=== PATIENT | female | born 1935 | race Caucasian/White ===

== ENCOUNTER → 2017-04-02 | Outpatient (CLI) | payer MEDICARE ==
--- NOTE | 2017-04-02 09:49 | BD ---
EXAMINATION TYPE: MG DEXA axial skeleton. DATE OF EXAM: 04/02/2017 COMPARISON: 03/19/2013 DEXA bone scan CLINICAL HISTORY: Postmenopausal female Height: 63 IN Weight: 161 LBS FRAX RISK QUESTIONS: Alcohol (3 or more units per day): NO Family History (Parent hip fracture): NO Glucocorticoids (More than 3mos): NO (Ex: prednisone, prednisolone, methylprednisolone, dexamethasone, and hydrocortisone). History of Fracture in Adulthood: YES FRACTURE OF RT TIBIA Secondary Osteoporosis: 1. Type 1 Diabetes: NO 2. Hyperthyroidism: NO 3. Menopause before 45: YES AGE 40 4. Malnutrition: NO 5. Chronic liver disease: NO Rheumatoid Arthritis: NO Current Tobacco Use: NO RISK FACTORS HISTORY OF: Active: YES Diet low in dairy products/other sources of calcium: YES Postmenopausal woman: AGE 40 MEDICATIONS: Osteoporosis Medications: NOT NOW Which medication: Fosamax How Long: AGE 55 - 57 Additional Medications: VIT D, ATENOLOL, VALSARTAN, SIMVASTATIN, ASPIRIN, XANAX, AMOXICILLIN, NEXIUM, EXAM MEASUREMENTS: Bone mineral densitometry was performed using the [facility]. Bone mineral density as measured about the Lumbar spine is: ----- L1-L4(G/cm2): 1.177 T Score Values are as follows: ----- L2: -0.9 ----- L3: 0.2 ----- L4: 1.2 ----- L1-L4: 0.0 Bone mineral density has: Increased 5.0% since study of: 03/19/2013 Bone mineral density about the R hip (g/cm2): 0.878 Bone mineral density about the L hip (g/cm2): 0.810 T Score values are as follows: -----R Neck: -1.2 -----L Neck: -1.6 -----R Total: -1.4 -----L Total: -1.5 Bone mineral density has: Increased 0.6% since study of: 03/19/2013 IMPRESSION: Osteopenia (T Score between -2.5 and -1 as noted by T score values in bilateral hips femoral neck lev el remains present. Bone density fairly stable from prior. There is slightly increased risk of fracture and the patient may be considered for treatment. Re-Screen 2-5 years. NOTE: T-SCORE=SD OF THE YOUNG ADULT MEAN.
--- NOTE | 2017-04-03 11:40 | MM ---
Reason for exam: screening (asymptomatic). Last mammogram was performed 1 year ago. History: Patient is postmenopausal, history of other cancer, and is nulliparous. Family history of breast cancer in sister at age 50. Physical Findings: A clinical breast exam by your physician is recommended on an annual basis and results should be correlated with mammographic findings. MG 3D Screening Mammo W/Cad Bilateral CC and MLO view(s) were taken. Prior study comparison: April 01, 2016, bilateral MG 3d screening mammo w/cad. March 30, 2015, bilateral MG screening mammo w CAD. There are scattered fibroglandular densities. Finding: There are typically benign dystrophic, round calcifications in the right breast. There is a chronic nodularity in the right breast. Asymmetric breast tissue in the left breast, stable. ASSESSMENT: Benign, BI-RAD 2 RECOMMENDATION: Routine screening mammogram of both breasts in 1 year.
== END | disposition home or self-care (01) ==
LOC: RADMAMWWP 07:34
PROVIDERS: ATTEND Internal Medicine
DX: Z12.31 Encounter for screening mammogram for malignant neoplasm of breast (principal); M85.80 Other specified disorders of bone density and structure, unspecified site; Z78.0 Asymptomatic menopausal state
CPT/HCPCS: 77080; 77063; G0202

== ENCOUNTER 2017-08-27 09:35 | Emergency (ER) | payer MEDICARE ==
[2017-08-27 09:45] VITALS: RESP 18; TEMP 98.5
--- NOTE | 2017-08-27 10:16 | ED ---
General Adult HPI - General Chief complaint: Syncope Stated complaint: SYNCOPE Time Seen by Provider: 08/27/17 10:05 Source: patient, family, RN notes reviewed Mode of arrival: wheelchair Limitations: no limitations - History of Present Illness Initial comments: Patient is a pleasant 81-year-old female presenting to the emergency department following syncopal episode. Episode occurred this morning while in the kitchen making coffee. Patient did not injure herself. No head injury. Patient has had some diarrhea over the past several days and does have some concern for dehydration. Patient has had gas. No abdominal pain. Patient has had cough for the past week or more. No difficulty in breathing. - Related Data Home Medications Medication Instructions Recorded Confirmed ALPRAZolam [Xanax] 0.25 mg PO HS PRN 05/16/15 08/27/17 Aspirin EC [Ecotrin] 81 mg PO DAILY 05/16/15 08/27/17 Atenolol [Tenormin] 25 mg PO DAILY 05/16/15 08/27/17 Simvastatin [Zocor] 20 mg PO HS 05/16/15 08/27/17 Valsartan/Hydrochlorothiazide 1 tab PO DAILY 05/16/15 08/27/17 [Valsartan-Hctz 320-25 mg Tab] Cholecalciferol [Vitamin D3] 1,000 unit PO DAILY 08/27/17 08/27/17 Naproxen Sodium [Aleve] 220 mg PO BID PRN 08/27/17 08/27/17 Previous Rx's Medication Instructions Recorded Metoclopramide HCl [Reglan] 10 mg PO Q6HR PRN #15 tablet 08/27/17 Allergies Allergy/AdvReac Type Severity Reaction Status Date / Time codeine AdvReac Nausea & Verified 08/27/17 10:10 Vomiting Review of Systems ROS Statement: Those systems with pertinent positive or pertinent negative responses have been documented in the HPI. ROS Other: All systems not noted in ROS Statement are negative. Constitutional: Denies: fever Eyes: Denies: eye pain ENT: Denies: ear pain Respiratory: Reports: cough. Denies: dyspnea Cardiovascular: Denies: chest pain Endocrine: Denies: fatigue Gastrointestinal: Reports: nausea, diarrhea. 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 Absent: nystagmus ENT exam: Present: normal oropharynx Neck exam: Present: normal inspection Respiratory exam: Present: normal lung sounds bilaterally. Absent: chest wall tenderness Cardiovascular Exam: Present: regular rate, normal rhythm Expanded Peripheral pulses: 2+: Radial (R), Radial (L), Posterior Tibialis (R), Posterior Tibialis (L) GI/Abdominal exam: Present: soft. Absent: tenderness Extremities exam: Present: normal inspection. Absent: pedal edema, calf tenderness Back exam: Present: normal inspection Neurological exam: Present: alert, oriented X3, CN II-XII intact. Absent: motor sensory deficit Expanded Neurological exam: Present: protecting the airway Patient oriented to: Present: person, place, time Speech: Present: fluid speech Cranial nerves: EOM's Intact: Normal, Facial Sensation: Normal Sensory exam: Upper Extremity Light Touch: Normal, Lower Extremity Light Touch: Normal Motor strength exam: RUE: 5, LUE: 5, RLE: 5, LLE: 5 Eye Response: (4) open spontaneously Motor Response: (6) obeys commands Verbal Response: (5) oriented Psychiatric exam: Present: normal affect, normal mood Skin exam: Present: normal color Course Vital Signs 08/27/17 09:42 Temperature 98.5 F Pulse Rate 93 Respiratory 18 Rate Blood Pressure 131/66 O2 Sat by Pulse 96 Oximetry EKG Findings - EKG Comments: EKG Findings:: Normal sinus rhythm 65. MT 164. QRS 98. QT 392. QTC 407. Normal axis. T wave inversion inferior and leads V3 through V6. Q wave in lead 3. Medical Decision Making - Medical Decision Making Patient reevaluated and resting comfortably in bed. Patient is symptom-free at this time. Case discussed in detail with Dr. Mckenzie who does recommend further fluid bolus. He states the patient is feeling better at that point can be discharged. Patient updated. - Lab Data Result diagrams: 08/27/17 10:55 08/27/17 10:55 Lab Results 08/27/17 08/27/17 08/27/17 Range/Units 10:55 10:55 10:55 WBC 6.2 (3.8-10.6) k/uL RBC 4.61 (3.80-5.40) m/uL Hgb 13.5 (11.4-16.0) gm/dL Hct 39.8 (34.0-46.0) % MCV 86.3 (80.0-100.0) fL MCH 29.4 (25.0-35.0) pg MCHC 34.0 (31.0-37.0) g/dL RDW 12.3 (11.5-15.5) % Plt Count 180 (150-450) k/uL Neutrophils % 87 % Lymphocytes % 5 % Monocytes % 4 % Eosinophils % 2 % Basophils % 0 % Neutrophils # 5.4 (1.3-7.7) k/uL Lymphocytes # 0.3 L (1.0-4.8) k/uL Monocytes # 0.3 (0-1.0) k/uL Eosinophils # 0.1 (0-0.7) k/uL Basophils # 0.0 (0-0.2) k/uL PT (9.0-12.0) sec INR (<1.2) APTT (22.0-30.0) sec D-Dimer (<0.60) mg/L FEU Sodium 126 L (137-145) mmol/L Potassium 3.4 L (3.5-5.1) mmol/L Chloride 85 L (98-107) mmol/L Carbon Dioxide 30 (22-30) mmol/L Anion Gap 11 mmol/L BUN 12 (7-17) mg/dL Creatinine 0.65 (0.52-1.04) mg/dL Est GFR (MDRD) Af Amer >60 (>60 ml/min/1.73 sqM) Est GFR (MDRD) Non-Af >60 (>60 ml/min/1.73 sqM) Glucose 107 H (74-99) mg/dL Calcium 9.2 (8.4-10.2) mg/dL Magnesium 1.6 (1.6-2.3) mg/dL Total Bilirubin 0.2 (0.2-1.3) mg/dL AST 47 H (14-36) U/L ALT 40 (9-52) U/L Alkaline Phosphatase 45 (38-126) U/L Total Creatine Kinase 279 H (30-135) U/L CK-MB (CK-2) 0.8 (0.0-2.4) ng/mL CK-MB (CK-2) Rel Index 0.3 Troponin I <0.012 (0.000-0.034) ng/mL Total Protein 6.5 (6.3-8.2) g/dL Albumin 3.9 (3.5-5.0) g/dL 08/27/17 Range/Units 10:55 WBC (3.8-10.6) k/uL RBC (3.80-5.40) m/uL Hgb (11.4-16.0) gm/dL Hct (34.0-46.0) % MCV (80.0-100.0) fL MCH (25.0-35.0) pg MCHC (31.0-37.0) g/dL RDW (11.5-15.5) % Plt Count (150-450) k/uL Neutrophils % % Lymphocytes % % Monocytes % % Eosinophils % % Basophils % % Neutrophils # (1.3-7.7) k/uL Lymphocytes # (1.0-4.8) k/uL Monocytes # (0-1.0) k/uL Eosinophils # (0-0.7) k/uL Basophils # (0-0.2) k/uL PT 10.5 (9.0-12.0) sec INR 1.1 (<1.2) APTT 25.6 (22.0-30.0) sec D-Dimer 12.52 H (<0.60) mg/L FEU Sodium (137-145) mmol/L Potassium (3.5-5.1) mmol/L Chloride (98-107) mmol/L Carbon Dioxide (22-30) mmol/L Anion Gap mmol/L BUN (7-17) mg/dL Creatinine (0.52-1.04) mg/dL Est GFR (MDRD) Af Amer (>60 ml/min/1.73 sqM) Est GFR (MDRD) Non-Af (>60 ml/min/1.73 sqM) Glucose (74-99) mg/dL Calcium (8.4-10.2) mg/dL Magnesium (1.6-2.3) mg/dL Total Bilirubin (0.2-1.3) mg/dL AST (14-36) U/L ALT (9-52) U/L Alkaline Phosphatase (38-126) U/L Total Creatine Kinase (30-135) U/L CK-MB (CK-2) (0.0-2.4) ng/mL CK-MB (CK-2) Rel Index Troponin I (0.000-0.034) ng/mL Total Protein (6.3-8.2) g/dL Albumin (3.5-5.0) g/dL - Radiology Data Radiology results: report reviewed (Computed tomography scan of the chest negative for pulmonary embolism. Computed tomography scan of the brain reveals no acute process.), image reviewed (Chest x-ray shows no acute process.) Disposition Clinical Impression: Syncope, Hyponatremia Disposition: HOME SELF-CARE Condition: Stable Instructions: Hyponatremia (ED), Syncope (ED) Additional Instructions: Please follow-up with Dr. Mckenzie in the next couple of days for recheck. He will need to have your sodium level checked and your blood within the next few days. Return for passing out, vomiting, not tolerating oral intake, worsening symptoms or other concerns. Prescriptions: Metoclopramide HCl [Reglan] 10 mg PO Q6HR PRN #15 tablet PRN Reason: Nausea Referrals: Pineda Mckenzie MD [Primary Care Provider] - 1-2 days Time of Disposition: 14:11
[2017-08-27 11:04] LABS: Basophils % (A) 0 %; Eosinophils # (A) 0.1 k/uL (0-0.7); Eosinophils % (A) 2 %; HCT 39.8 % (34.0-46.0); HGB 13.5 gm/dL (11.4-16.0); Lymphocytes # (A) 0.3 k/uL (1.0-4.8); Lymphocytes % (A) 5 %; MCH 29.4 pg (25.0-35.0); MCV 86.3 fL (80.0-100.0); Mean Platelet Volume 7.1; Monocytes # (A) 0.3 k/uL (0-1.0); Monocytes % (A) 4 %; Neutrophils # (A) 5.4 k/uL (1.3-7.7); Neutrophils % (A) 87 %; Platelet Count 180 k/uL (150-450); RBC 4.61 m/uL (3.80-5.40); RDW 12.3 % (11.5-15.5); WBC 6.2 k/uL (3.8-10.6)
[2017-08-27 11:19] LABS: ALT 40 U/L (9-52); AST 47 U/L (14-36); Albumin 3.9 g/dL (3.5-5.0); Alkaline Phosphatase 45 U/L (38-126); Anion Gap 11 mmol/L; Blood Urea Nitrogen 12 mg/dL (7-17); Calcium 9.2 mg/dL (8.4-10.2); Carbon Dioxide 30 mmol/L (22-30); Chloride 85 mmol/L (98-107); Glucose 107 mg/dL (74-99); INR 1.1 (<1.2); Magnesium 1.6 mg/dL (1.6-2.3); Potassium 3.4 mmol/L (3.5-5.1); Sodium 126 mmol/L (137-145); Total Bilirubin 0.2 mg/dL (0.2-1.3); Total Protein 6.5 g/dL (6.3-8.2)
[2017-08-27 11:20] LABS: Creatine Kinase 279 U/L (30-135); D-Dimer 12.52 mg/L FEU (<0.60); Partial Thromboplastin Time 25.6 sec (22.0-30.0); Prothrombin Time 10.5 sec (9.0-12.0)
[2017-08-27 11:33] LABS: Creatine Kinase MB 0.8 ng/mL (0.0-2.4); Troponin I <0.012 ng/mL (0.000-0.034)
--- NOTE | 2017-08-27 11:59 | CT ---
EXAMINATION TYPE: CT brain wo con DATE OF EXAM: 08/27/2017 COMPARISON: NONE INDICATION: Patient complains of syncopeal episode today. DLP: 823.8 mGycm, Automated exposure control for dose reduction was used. CONTRAST: None CT of the brain is performed utilizing 3 mm thick sections through the posterior fossa and 3 mm thick sections through the remaining calvarium. Study is performed within 24 hours of arrival to the hosp ital. No abnormal hyperdensity is present to suggest an acute intracranial hemorrhage. No mass lesion is evident. No acute infarcts are evident. Ventricles and sulci are appropriate for the patient age. Paranasal sinuses and mastoid air cells within the [id number] are clear. There is hyperostosis frontalis internus, normal variant. IMPRESSIONS: 1. No acute intracranial process.
--- NOTE | 2017-08-27 12:09 | XR ---
EXAMINATION TYPE: XR chest 2V DATE OF EXAM: 08/27/2017 COMPARISON: 11/21/2010 INDICATION: Syncope cough short of breath TECHNIQUE: Frontal and lateral views of the chest are obtained. FINDINGS: The heart size is normal. The pulmonary vasculature is normal. The lungs are clear. IMPRESSION: 1. No acute pulmonary process.
[2017-08-27] MEDS ORDERED: SODIUM CHLORIDE 0.9% 1,000 ML IV STA ×2 (12:18→14:02)
[2017-08-27] MEDS ORDERED: RX INFO: IV CONTRAST WAS GIVEN 1 EACH MISC MISCELLANE PRN (12:18)
[2017-08-27] MEDS ORDERED: SODIUM CHLORIDE 0.9% 500 ML IV STA (12:18)
--- NOTE | 2017-08-27 13:40 | CT ---
CT CHEST FOR PULMONARY EMBOLISM. EXAMINATION TYPE: CT angio chest DATE OF EXAM: 08/27/2017 INDICATION: Patient complains of syncopal episode today. CT DLP: 158.2 mGycm, Automated exposure control for dose reduction was used. CONTRAST: Patient injected with 100 mL of Omnipaque 350. COMPARISON: NONE TECHNIQUE: CT of the chest is performed on a spiral scan at 2 mm thick sections. Study is performed with intravenous contrast timed for evaluation for pulmonary embolism. This will limit additional po rtions of the evaluation. 3-D MIP images reconstructed by the technologist are reviewed on the compu ter in the coronal and sagittal planes. FINDINGS: No persistent filling defects are evident to suggest an acute pulmonary embolism. No mediastinal or hilar adenopathy enlarged by CT criteria is evident. The ascending aorta diameter at the level of the main pulmonary artery is 2.9 cm. The main pulmonary artery diameter at the bifur cation is 2.5 cm. Lung windows are clear. There is a small hiatal hernia present. Limited CT sections are obtained through the upper abdomen. There is a 1.7 cm cyst measuring 17 Houns field units in the medial right lobe liver. IMPRESSIONS: 1. No acute pulmonary embolism.
[2017-08-27 15:14] VITALS: BP 144/85; PULSE 72
== END 2017-08-27 15:24 | disposition home or self-care (01) ==
LOC: EC 09:35
DX: E87.1 Hypo-osmolality and hyponatremia (principal); R19.7 Diarrhea, unspecified; R05 Cough; R55 Syncope and collapse; E78.5 Hyperlipidemia, unspecified; I10 Essential (primary) hypertension; Z87.891 Personal history of nicotine dependence; Z79.82 Long term (current) use of aspirin; Z79.899 Other long term (current) drug therapy; Z88.5 Allergy status to narcotic agent; Z53.8 Procedure and treatment not carried out for other reasons
CPT/HCPCS: 36415; 93005; 85379; 80053; 82550; 82553; 83735; 84484; 85025; 85610; 85730; 71046; 70450; 71275; 99285; 96360; Q9967

== ENCOUNTER → 2018-02-26 | Outpatient (CLI) | payer MEDICARE ==
[2018-02-26 08:03] LABS: HCT 44.9 % (34.0-46.0); HGB 14.3 gm/dL (11.4-16.0); MCH 28.6 pg (25.0-35.0); MCHC 31.8 g/dL (31.0-37.0); MCV 89.7 fL (80.0-100.0); Mean Platelet Volume 7.2; Platelet Count 310 k/uL (150-450); RDW 12.7 % (11.5-15.5); WBC 7.6 k/uL (3.8-10.6)
[2018-02-26 08:17] LABS: INR 1.1 (<1.2); Partial Thromboplastin Time 25.5 sec (22.0-30.0); Prothrombin Time 10.4 sec (9.0-12.0)
[2018-02-26 08:30] LABS: Albumin 4.5 g/dL (3.5-5.0); Calcium 10.6 mg/dL (8.4-10.2); Total Bilirubin 0.6 mg/dL (0.2-1.3); Total Protein 7.6 g/dL (6.3-8.2)
[2018-02-26 08:38] LABS: Appearance,Urine Cloudy (Clear); Bacteria,Urine Many /hpf; Bilirubin,Urine Negative (Negative); Blood,Urine Trace (Negative); Color,Urine Yellow; Glucose,Urine (UA) Negative (Negative); Hyaline Casts,Urine 7 /lpf (0-2); Ketones,Urine Negative (Negative); Leukocyte Esterase,Urine Large (Negative); Mucus,Urine Few /hpf; Nitrite,Urine Negative (Negative); PH, Urine 5.5 (5.0-8.0); Protein,Urine 1+ (Negative); RBC,Urine 3 /hpf (0-5); Specific Gravity,Urine 1.018 (1.001-1.035); Squamous Epithelial Cell,Urine 25 /hpf (0-4); Urobilinogen,Urine <2.0 mg/dL (<2.0); WBC,Urine 86 /hpf (0-5)
== END | disposition home or self-care (01) ==
LOC: LABPAT 06:59
PROVIDERS: ATTEND Orthopaedic Surgery
DX: Z01.812 Encounter for preprocedural laboratory examination (principal); M17.11 Unilateral primary osteoarthritis, right knee; Z79.01 Long term (current) use of anticoagulants
CPT/HCPCS: 36415; 80053; 81001; 85027; 85610; 85730; 87070

== ENCOUNTER 2018-03-25 12:51 | Inpatient (IN) | payer MEDICARE ==
[2018-03-19 09:23] VITALS: BMI 27.4
[~2018-03-25 12:51] MED LIST: ACETAMINOPHEN TAB 500 MG TAB PO ONE; LIDOCAINE 1% 20 ML VIAL (10MG/ML) FOR IV START INTRADERMA PRN; TRANEXAMIC ACID 1,000 MG in SODIUM CHLORIDE 0.9% 50 ML IVPB ONE; ceFAZolin IN SWFI 2 GM/20 ML SYRINGE IVP ONE
[2018-03-25] MEDS ORDERED: ROPIVACAINE 246.25 MG, EPINEPHrine 0.5 MG, KETOROLAC 30 MG, cloNIDine HCL/PF 80 MCG, WA... MISCELLANE ONE ×5 (12:53)
[2018-03-25] MEDS: ONDANSETRON 4 MG/2 ML VIAL IVP ONE ×2 (13:20→19:09)
[2018-03-25] MEDS: LACTATED RINGERS 1,000 ML IV SCH ×2 (13:22→21:25)
[2018-03-25] MEDS ORDERED: TRANEXAMIC ACID 1,000 MG/10 ML VIAL ONE (15:49)
[2018-03-25] MEDS ORDERED: diphenhydrAMINE 50 MG/ML 1 ML VIAL ONE (15:49)
[2018-03-25] MEDS ORDERED: MIDAZOLAM 2 MG/2 ML VIAL ONE (15:49)
[2018-03-25] MEDS ORDERED: SODIUM CHLORIDE 0.9% 100 ML BAG ONE (15:49)
[2018-03-25] MEDS ORDERED: fentaNYL (PF) 50 MCG/ML 2 ML AMP ONE (15:49)
[2018-03-25] MEDS ORDERED: PROPOFOL 10 MG/ML 20 ML VIAL IV ONE (15:49)
[2018-03-25] MEDS ORDERED: PHENYLEPHRINE-0.9% NACL SYG 1 MG/10 ML SYRINGE ONE (15:49)
[2018-03-25] MEDS ORDERED: ePHEDrine SULFATE/0.9% NACL/PF 50 MG/5 ML SYRINGE IV ONE (15:49)
[2018-03-25] MEDS ORDERED: LACTATED RINGERS 1,000 ML IV ONE ×2 (16:15→18:55)
--- NOTE | 2018-03-25 17:55 | P.OP ---
Date of Procedure: 03/25/18 Procedure(s) Performed: PREOPERATIVE DIAGNOSIS: Right knee severe osteoarthritis with genu varum POSTOPERATIVE DIAGNOSIS: Right knee severe osteoarthritis with genu varum; 2. Diminished bone quality/osteopenia/osteoporosis OPERATION: Right knee cemented total replacement arthroplasty. ANESTHESIA: Spinal ESTIMATED BLOOD LOSS: 100 ml. UPSETTER: Hoda Acevedo PA-C (assistance with: patient positioning, retraction, exposure, hemostasis, leg positioning, implantation, irrigation, closure, dressing) COMPLICATIONS: None apparent. COMPONENTS IMPLANTED: Persona system from [employer] with tibial stem extension INDICATIONS: Mrs. Nix is an 82-year-old female with a history of knee osteoarthritis. The patient's knee is end-stage, and conservative management has failed. The operation of knee replacement has been discussed at length in the office, as well as potential risks and complications. These are inclusive of, but not limited to: bleeding, infection, scarring, discomfort, blood vessel and nerve damage, need for further surgery, failure to relieve symptoms, persistence, recurrence, or worsening of problems, loosening, dislocation, wear , blood clot, pulmonary embolism, , gait dysfunction, stiffness, and other risks as discussed in the office. The patient elects to proceed and the consent form has been signed. PROCEDURE: The patient was taken to the operating room and positioned on the operating room table in the supine position. Anesthesia was initiated. Care was taken to make sure that all pressure points were adequately padded. The operative lower extremity was prepped and draped in the usual aseptic fashion using ChloraPrep. Ioban drape was used for the case and the patient received intravenous antibiotics within one hour of the incision. A pneumotourniquet and leg monroy were used for the case. The limb was exsanguinated with an Esmarch bandage and the tourniquet was inflated to 350 mmHg. Time-out was called confirming the patient's identity, side, procedure and administration of antibiotics. The incision was then created midline directly over the knee, carried down through skin and into the subcutaneous tissues and down to fascia. Full thickness subcutaneous medial flap was developed. Medial parapatellar arthrotomy was performed and the interior of the knee was inspected. There was end-stage osteoarthritis of the knee with a mild to moderate genu varum type deformity. The fat pad was excised and proximal medial release on the tibia was completed using meticulous dissection and a curved osteotome. The anterior cruciate ligament was taken down. Note was made of significant attrition of the anterior and significant degenerative appearance of the posterior cruciate ligaments. The exposure was excellent. The knee was flexed 90 degrees and the patella was everted. A spot was chosen on the femur approximately 1 cm anterior to the posterior cruciate ligament insertion and an intramedullary hole was created within the femur. The intramedullary guide was then set to 5 degrees of valgus. The distal cutting block was attached and pinned into position. An appropriate amount of distal femoral resection was set. The oscillating saw was then used to make the distal femoral cut. This cut was confirmed to be flat with the flat end of an osteotome. The retractors were placed around the tibia and the tibial surface was addressed. The angle and depth of resection was adjusted using an extramedullary cutting guide. The guide had a built-in 3 degree posterior slope cut. Once the cutting guide was adjusted appropriately and in line with the axis of the tibia and confirmed to be in good position in relation to the second metatarsal and transmalleolar axis, the tibial cut was then created with protection of the posterior neurovascular structures and the collateral ligaments. Note was made of diminished bone quality and therefore a short tibial stem extension was planned. The tibial cut surface was removed and sized. Femoral sizing was then accomplished using anterior referencing. Care was taken to analyze the posterior condyles for signs of deficiency or severe wear, and adjustments to the guide were made, as appropriate. 3 degree external rotation pins were placed. The cutting jig for the femur was applied to these pins. The planned cuts were further analyzed prior to performing them with the oscillating saw. No femoral notching was produced. Bone fragments were removed and the cut surfaces were finished, as necessary, with a reciprocating saw. Spacer block technique was then used to confirm that the flexion and extension gaps were equal. Soft tissue releases and adjustment of the tibial and/or femoral cuts were made, as necessary, until the gaps were equal. This included release of the posterior cruciate ligament, which was tight in this patient and , if left unreleased, would have resulted in poor kinematics and possibly early loosening. The femur was then further finished for a posterior cruciate ligament substituting component. Patellar resurfacing was performed using a reamer. The size of the required patellar component was estimated and the patellar surface was then reamed down to a residual thickness which would recreate the iroquois thickness with the component. The exact placement of the patellar component was adjusted for position based on preoperative x-rays and intraoperative findings. Prior to placing trial components, anesthetic solution consisting of ropivicaine with epinephrine, ketorolac, and clonidine was injected carefully and methodically in a grid pattern using aspiration technique into the soft tissue around the knee circumferentially, starting with the deeper tissues first and progressing to fascia, and then finally the skin/subcutaneous tissue. Particular care was taken when injecting the posterior capsule. The trial components were inserted. The tibial tray was allowed to self center and the patella was noted to track very well. The position of the tibial component was marked and the tibia was then finished for a stemmed tibial component. Cement was mixed on the back table and applied to the final components. Trial components were removed and the cut surfaces of the bone were pulse lavaged thoroughly and dried. Cement was then applied to the tibial surface and pressurized into the surface using finger pressurization technique. The tibial component with stem extension was then applied and excess cement was removed after it was impacted securely and noted to be flush with the cut surface. In similar fashion, the cement was applied to the cut femoral surface, pressurized in using finger pressurization and the component was impacted into place. Excess cement was removed. The polyethylene spacer was then implanted and locked into position. The patellar component was then applied in similar technique and a patellar clamp was used to hold the patella in place as the cement hardened. Once the cement had fully hardened, the knee was reinspected. Any other cement extrusion was removed and final kinematic testing showed range of motion from 0 to 130 degrees with excellent stability, both medially and laterally and appropriate alignment of the leg. Patellar tracking was excellent. The knee was then thoroughly pulse lavaged with normal saline. The tourniquet was deflated and hemostasis was obtained with electrocautery and IV tranexamic acid, 1 g given at the start of the operation and 1 g at the start of closure. Closure was with #2 Ethibond in the fascia/capsule and supplemented with #2 Quill, 2-0 Vicryl suture was used for the subcutaneous tissues and 3-0 Quill for the skin. Dermabond/Steri-Strips were then applied. A lightly compressive dressing was applied using Webril and an Ketan wrap. The patient was then transferred to stretcher and taken to the recovery room in stable condition. Sponge and needle counts were correct.
[2018-03-25] MEDS ORDERED: MAGNESIUM HYDROXIDE 2,400 MG/10 ML CUP PO PRN (18:26)
[2018-03-25] MEDS ORDERED: NA PHOS,M-B/NA PHOS,DI-BA 133 ML ENEMA RECTAL PRN (18:26)
[2018-03-25] MEDS ORDERED: HYDROmorphone 1 MG/ML 1 ML SYRINGE IVP PRN ×4 (18:26→23:35)
[2018-03-25] MEDS ORDERED: BISACODYL 10 MG SUPP RECTAL PRN (18:26)
[2018-03-25] MEDS ORDERED: ONDANSETRON 4 MG/2 ML VIAL IVP PRN (18:26)
[2018-03-25] MEDS ORDERED: NALOXONE 0.4 MG/ML 1 ML VIAL IV PRN (18:26)
[2018-03-25] MEDS: HYDROmorphone 0.5 MG/0.5 ML SYRINGE IVP PRN ×2 (18:41→18:54)
[2018-03-25] MEDS ORDERED: WARFARIN 2.5 MG TAB PO ONE (18:45)
[2018-03-25 18:48] VITALS: RESP 16
--- NOTE | 2018-03-25 19:06 | XR ---
EXAMINATION TYPE: XR knee limited RT DATE OF EXAM: 03/25/2018 COMPARISON: NONE HISTORY: Postop TECHNIQUE: 2 views FINDINGS: There is a right knee prosthesis. Components are in anatomic position. IMPRESSION: No complicating process seen.
[2018-03-25] MEDS ORDERED: METOCLOPRAMIDE 5 MG/ML 2 ML VIAL IVP PRN (20:19)
[2018-03-25] MEDS ORDERED: SENNOSIDES-DOCUSATE SODIUM 1 EACH TAB PO SCH (21:00)
[2018-03-25] MEDS ORDERED: ATORVASTATIN 10 MG TAB PO SCH (21:00)
[2018-03-25] MEDS: ATENOLOL 25 MG TAB PO SCH (21:24)
[2018-03-25] MEDS: CHOLECALCIFEROL 1,000 UNIT TAB PO SCH (21:55)
[2018-03-25] MEDS ORDERED: TEMAZEPAM 15 MG CAP PO PRN (22:00)
[2018-03-26] MEDS: ceFAZolin IN SWFI 2 GM/20 ML SYRINGE IVP SCH ×2 (00:08→09:19)
[2018-03-26] MEDS: LACTATED RINGERS 1,000 ML IV SCH ×3 (04:30→14:42)
[2018-03-26 07:44] LABS: Basophils % (A) 0 %; Eosinophils # (A) 0.1 k/uL (0-0.7); Eosinophils % (A) 1 %; HCT 32.2 % (34.0-46.0); HGB 10.5 gm/dL (11.4-16.0); Lymphocytes # (A) 1.3 k/uL (1.0-4.8); Lymphocytes % (A) 13 %; MCH 28.8 pg (25.0-35.0); MCHC 32.6 g/dL (31.0-37.0); MCV 88.3 fL (80.0-100.0); Monocytes # (A) 0.4 k/uL (0-1.0); Monocytes % (A) 4 %; Neutrophils # (A) 8.3 k/uL (1.3-7.7); Neutrophils % (A) 81 %; Platelet Count 207 k/uL (150-450); RBC 3.65 m/uL (3.80-5.40); RDW 12.5 % (11.5-15.5); WBC 10.2 k/uL (3.8-10.6)
[2018-03-26 07:48] LABS: INR 1.9 (<1.2)
[2018-03-26] MEDS ORDERED: PANTOPRAZOLE 40 MG TABLET PO PRN (08:24)
[2018-03-26] MEDS ORDERED: ALPRAZolam 0.25 MG TAB PO PRN (08:24)
--- NOTE | 2018-03-26 08:48 | P.PN ---
Subjective Progress Note Date: 03/26/18 Principal diagnosis: Status post right total knee arthroplasty This is a 82 year-old female post right total knee arthroplasty. This is post- op day 1. The patient was evaluated at the bedside today. The patient denies nausea, vomiting, abdominal pain, shortness of breath, and chest pain this morning. She states her pain is controlled at this time. The patient has not been up with physical therapy. Objective - Vital Signs Vital signs: Vital Signs Temp 97.8 F 03/26/18 07:20 Pulse 126 H 03/26/18 07:20 Resp 16 03/26/18 00:06 BP 118/70 03/26/18 07:20 Pulse Ox 98 03/26/18 00:06 Intake & Output 03/25/18 03/26/18 03/26/18 18:59 06:59 18:59 Intake Total 1950 1200 Output Total 50 300 Balance 1900 900 Intake: IV 1950 Intake, IV Titration 1200 Amount Lactated Ringers 1,000 ml 1200 @ 100 mls/hr IV .Q10H ARLENE Rx#:[id number] Output: Urine 300 Estimated Blood Loss 50 Other: # Voids 1 - Exam The patient does not appear in acute distress. Alert and orientated x3. Dressing is clean dry and intact. Incision appears fine with no erythema or active drainage. Calf is soft and nontender. Good foot and ankle motion without difficulty. Sensation and circulatory status is intact. - Labs CBC & Chem 7: 03/26/18 07:18 Labs: Abnormal Lab Results - Last 24 Hours (Table) 03/26/18 03/26/18 Range/Units 07:18 07:18 RBC 3.65 L (3.80-5.40) m/uL Hgb 10.5 L (11.4-16.0) gm/dL Hct 32.2 L (34.0-46.0) % Neutrophils # 8.3 H (1.3-7.7) k/uL PT 17.0 H (9.0-12.0) sec INR 1.9 H (<1.2) Assessment and Plan (1) Osteoarthritis of right knee Current Visit: Yes Status: Acute Code(s): M17.11 - UNILATERAL PRIMARY OSTEOARTHRITIS, RIGHT KNEE SNOMED Code(s): 211949617353627 (2) Status post total right knee replacement Current Visit: Yes Status: Acute Code(s): Z96.651 - PRESENCE OF RIGHT ARTIFICIAL KNEE JOINT SNOMED Code(s): 6454071834343 Plan: 1. Continue pain control 2. Anticoagulation with Coumadin per protocol 3. Start physical therapy, CPM, and ambulation 4. Anticipate discharge home with homecare today if cleared by physical therapy
[2018-03-26] MEDS ORDERED: VALSARTAN 160 MG TAB PO SCH (09:00)
[2018-03-26] MEDS ORDERED: MELOXICAM 7.5 MG TAB PO SCH (09:00)
[2018-03-26] MEDS ORDERED: HYDROCHLOROTHIAZIDE 25 MG TAB PO SCH (09:00)
[2018-03-26] MEDS: traMADol 50 MG TAB PO PRN ×2 (09:15→15:06)
[2018-03-26] MEDS: ATENOLOL 25 MG TAB PO SCH (09:17)
[2018-03-26] MEDS: CHOLECALCIFEROL 1,000 UNIT TAB PO SCH (09:18)
[2018-03-26] MEDS ORDERED: PSYLLIUM HUSK 100% 6 GM PACKET PO SCH (12:00)
--- NOTE | 2018-03-26 14:06 | PN ---
PROGRESS NOTE CHIEF COMPLAINT: Re-evaluation. HISTORY OF PRESENT ILLNESS: This 83-year-old female is status post right total knee arthroplasty. She is doing better this morning. She did have some nausea, vomiting last night. Also reported elevated heart rate which the patient had no symptoms. The patient's vitals recorded earlier at a heart rate 126 at 7:20; however, at the time of my examination at about 8:15, the heart rate was 75. REVIEW OF SYSTEMS: NEURO: Denies any headaches, dizziness. PSYCH: No anxiety, depression. CARDIAC: No chest pain, angina, palpitations. RESPIRATORY: No shortness of breath, cough. GI: No nausea, vomiting, abdominal pain, diarrhea. : No symptoms of dysuria or hematuria. EXTREMITIES: No pain, edema. CONSTITUTIONAL: No fever, chills. PHYSICAL EXAMINATION: Pleasant female in no distress. Vital signs reveal temperature 97.8, pulse 75 earlier 126, blood pressure 118/70. HEENT: Normocephalic. NECK: No JVD. CHEST: Clear to auscultation. CARDIAC: Normal S1, S2 with no gallops, murmurs. ABDOMEN: Soft. Bowel sounds present. EXTREMITIES: No edema. Neurologically awake, alert, oriented with well-coordinated movements both upper extremities. LABORATORY ASSESSMENT: Hemoglobin 10.5, white count 10.2, INR 1.9. ASSESSMENT: 1. Anemia secondary to acute blood loss, post surgery. 2. Hypertension on medical therapy. 3. Postoperative nausea, vomiting. 4. Adequately anticoagulated status. PLAN: The patient is stable. Continue present medical regimen. Patient's condition discussed with the patient. Prognosis is guarded. Potential discharge later today. MMODL / IJN: [id number] /
[2018-03-26 14:26] VITALS: BP 138/68; PULSE 84; TEMP 98.6
--- NOTE | 2018-03-26 16:14 | P.DS ---
Providers Date of admission: 03/25/18 12:51 Expected date of discharge: 03/26/18 Attending physician: Roderick Estrella Consults: 03/25/18 18:26 Consult Physician Routine Consulting Provider: Pineda Mckenzie Consult Reason/Comments: Medical management Do you want consulting provider notified?: Yes Primary care physician: Pineda Mckenzie - Discharge Diagnosis(es) (1) Osteoarthritis of right knee Status: Acute (2) Status post total right knee replacement Status: Acute Hospital Course: This is an 82 year-old female last seen in our office with complaints of right knee pain. The patient has a known history of degenerative arthritis of the [] knee and presented to discuss options. After discussion and consideration the patient elected to proceed with a right total knee arthroplasty. The patient was seen preoperatively by Dr. Mckenzie and cleared for surgery. The patient was admitted to [facility] on 03/25/2018 and underwent a right total knee arthroplasty by Dr. Estrella. The procedure was performed without complications or sequelae. The patient was seen and evaluated at bedside today. The patient's pain is well-controlled. The patient has no new complaints today denies any fevers, chills, nausea, vomiting, or shortness of breath. Vital signs are stable. The dressing is clean, dry and intact. Incision looks fine with no erythema or active drainage. Calf is soft and nontender. The patient has full ankle motion without difficulty. The patient' s right lower extremity is neurovascularly intact. The patient is orthopedically stable for discharge home today in good condition. Pertinent Studies: Laboratory Tests 03/26/18 03/26/18 07:18 07:18 WBC 10.2 RBC 3.65 L Hgb 10.5 L Hct 32.2 L Neutrophils # 8.3 H PT 17.0 H INR 1.9 H Patient Condition at Discharge: Stable Plan - Discharge Summary Discharge Rx Participant: Yes New Discharge Prescriptions: New Sennosides-Docusate Sodium [Senokot-S] 1 tab PO BID #60 tablet traMADol HCL [Ultram] 50 mg PO Q6HR PRN #28 tab PRN Reason: Pain Warfarin [Coumadin] 2.5 mg PO DAILY #1 tab No Action Valsartan/Hydrochlorothiazide [Valsartan-Hctz 320-25 mg Tab] 1 tab PO DAILY Simvastatin [Zocor] 20 mg PO HS Atenolol [Tenormin] 25 mg PO BID Aspirin EC [Ecotrin] 81 mg PO DAILY ALPRAZolam [Xanax] 0.125 mg PO HS PRN PRN Reason: Insomnia Naproxen Sodium [Aleve] 220 mg PO DAILY PRN PRN Reason: Pain Cholecalciferol [Vitamin D3] 1,000 unit PO BID Esomeprazole Magnesium [NexIUM] 20 mg PO DAILY PRN PRN Reason: Heartburn Amoxicillin 2,000 mg PO ONCE PRN PRN Reason: prior to dental procedures Psyllium Husk [Metamucil] 0.8 gm PO DAILY Discharge Medication List ALPRAZolam [Xanax] 0.125 mg PO HS PRN 05/16/15 [History] Aspirin EC [Ecotrin] 81 mg PO DAILY 05/16/15 [History] Atenolol [Tenormin] 25 mg PO BID 05/16/15 [History] Simvastatin [Zocor] 20 mg PO HS 05/16/15 [History] Valsartan/Hydrochlorothiazide [Valsartan-Hctz 320-25 mg Tab] 1 tab PO DAILY [History] Cholecalciferol [Vitamin D3] 1,000 unit PO BID 08/27/17 [History] Naproxen Sodium [Aleve] 220 mg PO DAILY PRN 08/27/17 [History] Amoxicillin 2,000 mg PO ONCE PRN 02/27/18 [History] Esomeprazole Magnesium [NexIUM] 20 mg PO DAILY PRN 02/27/18 [History] Psyllium Husk [Metamucil] 0.8 gm PO DAILY 02/27/18 [History] Sennosides-Docusate Sodium [Senokot-S] 1 tab PO BID #60 tablet 03/25/18 [Rx] Warfarin [Coumadin] 2.5 mg PO DAILY #1 tab 03/25/18 [Rx] traMADol HCL [Ultram] 50 mg PO Q6HR PRN #28 tab 03/25/18 [Rx] Follow up Appointment(s)/Referral(s): Hoda Acevedo PAC [[facility] [employer]] - 04/08/18 10:15 am [facility] [REFERRING] - 04/02/18 2:30 pm (Dr. Mckenzie is out of town for at least 2 weeks, patients follow up is set up by covering office) [facility], [NON-STAFF] - Ambulatory/Diagnostic Orders: Continuous Passive Motion (CPM) Machine [DME.AMB1] Time Frame: 3 Weeks, Facility : [facility], Location: Case Management Prothrombin Time INR [LAB.AMB] Location: None Selected Patient Instructions/Handouts: Joint Replacement Surgery (DC) Activity/Diet/Wound Care/Special Instructions: May shower if no drainage from incision. May bear weight as tolerated. CPM 5-6h daily. Please call [place] once home to arrange delivery of CPM - [phone] Discharge Disposition: HOME WITH HOME HEALTH SERVICES
[2018-03-26] MEDS ORDERED: WARFARIN 2.5 MG TAB PO ONE (18:00)
== END 2018-03-26 15:08 | disposition home health service (06) | DRG 470 ==
LOC: 2ORMAIN 12:51 → EDSTATUS 15:25 → 3SUR 18:32
PROVIDERS: ADMIT Orthopaedic Surgery; ATTEND Orthopaedic Surgery
PROC: 0SRC0J9 Replacement of Right Knee Joint with Synthetic Substitute, Cemented, Open Approach (ICD-10-PCS; principal; 2018-03-25 15:15)
DX: M17.11 Unilateral primary osteoarthritis, right knee (principal); D62 Acute posthemorrhagic anemia; I10 Essential (primary) hypertension; M21.161 Varus deformity, not elsewhere classified, right knee; M81.0 Age-related osteoporosis without current pathological fracture; Z79.01 Long term (current) use of anticoagulants; Z79.899 Other long term (current) drug therapy; E78.5 Hyperlipidemia, unspecified; Z85.828 Personal history of other malignant neoplasm of skin; Z88.5 Allergy status to narcotic agent; Z96.652 Presence of left artificial knee joint; Z98.42 Cataract extraction status, left eye; Z98.41 Cataract extraction status, right eye; Z82.49 Family history of ischemic heart disease and other diseases of the circulatory system; Z87.891 Personal history of nicotine dependence
CPT/HCPCS: 85025; 85610; 88300

== ENCOUNTER → 2018-07-17 | Outpatient (CLI) | payer MEDICARE ==
--- NOTE | 2018-07-20 12:35 | MM ---
Reason for exam: screening (asymptomatic). Last mammogram was performed 1 year and 3 months ago. History: Patient is postmenopausal, history of other cancer, and is nulliparous. Family history of breast cancer in sister at age 50. MG 3D Screening Mammo W/Cad Bilateral CC and MLO view(s) were taken. Prior study comparison: April 02, 2017, bilateral MG 3d screening mammo w/cad. April 01, 2016, bilateral MG 3d screening mammo w/cad. There are scattered fibroglandular densities. Bilateral chronic nodularity. No significant changes when compared with prior studies. ASSESSMENT: Benign, BI-RAD 2 RECOMMENDATION: Routine screening mammogram of both breasts in 1 year.
== END | disposition home or self-care (01) ==
LOC: RADMAMWWP 12:52
PROVIDERS: ATTEND Internal Medicine
DX: Z12.31 Encounter for screening mammogram for malignant neoplasm of breast (principal)
CPT/HCPCS: 77063; 77067

== ENCOUNTER → 2019-03-05 | Outpatient (CLI) | payer MEDICARE ==
[2019-03-05 10:56] LABS: Basophils % (A) 1 %; Eosinophils # (A) 0.1 k/uL (0-0.7); Eosinophils % (A) 2 %; HCT 41.3 % (34.0-46.0); HGB 13.6 gm/dL (11.4-16.0); Lymphocytes # (A) 1.5 k/uL (1.0-4.8); Lymphocytes % (A) 20 %; MCHC 32.9 g/dL (31.0-37.0); Mean Platelet Volume 7.1; Monocytes # (A) 0.3 k/uL (0-1.0); Monocytes % (A) 4 %; Neutrophils # (A) 5.1 k/uL (1.3-7.7); Neutrophils % (A) 71 %; Platelet Count 260 k/uL (150-450); RBC 4.54 m/uL (3.80-5.40); RDW 13.2 % (11.5-15.5); WBC 7.1 k/uL (3.8-10.6)
[2019-03-05 11:09] LABS: Calcium 10.6 mg/dL (8.4-10.2); Potassium 4.5 mmol/L (3.5-5.1)
[2019-03-05 11:13] LABS: INR 0.9 (<1.2); Partial Thromboplastin Time 26.5 sec (22.0-30.0); Prothrombin Time 10.1 sec (9.0-12.0)
[2019-03-05 11:30] LABS: Appearance,Urine Cloudy (Clear); Bacteria,Urine Occasional /hpf; Bilirubin,Urine Negative (Negative); Blood,Urine Negative (Negative); Color,Urine Yellow; Glucose,Urine (UA) Negative (Negative); Ketones,Urine Negative (Negative); Leukocyte Esterase,Urine Moderate (Negative); Mucus,Urine Rare /hpf; Nitrite,Urine Negative (Negative); PH, Urine 6.5 (5.0-8.0); Protein,Urine Negative (Negative); RBC,Urine 1 /hpf (0-5); Specific Gravity,Urine 1.014 (1.001-1.035); Squamous Epithelial Cell,Urine 7 /hpf (0-4); Urobilinogen,Urine <2.0 mg/dL (<2.0); WBC,Urine 15 /hpf (0-5)
--- NOTE | 2019-03-05 11:50 | XR ---
EXAMINATION TYPE: XR chest 2V DATE OF EXAM: 03/05/2019 COMPARISON: 08/27/2017 INDICATION: Z01.818 TECHNIQUE: Frontal and lateral views of the chest are obtained. FINDINGS: The heart size is normal. The pulmonary vasculature is normal. The lungs are clear. Right shoulder prosthesis is present. IMPRESSION: 1. No acute pulmonary process.
== END | disposition home or self-care (01) ==
LOC: LABPAT 09:50
PROVIDERS: ATTEND Orthopaedic Surgery Orthopaedic Surgery of the Spine
DX: Z01.812 Encounter for preprocedural laboratory examination (principal); Z01.818 Encounter for other preprocedural examination; M48.00 Spinal stenosis, site unspecified; Z79.01 Long term (current) use of anticoagulants
CPT/HCPCS: 36415; 71046; 80048; 81001; 85025; 85610; 85730

== ENCOUNTER 2019-03-12 10:22 | Day surgery (SDC) | payer MEDICARE ==
[~2019-03-12 10:22] MED LIST changes: -ACETAMINOPHEN TAB 500 MG TAB PO ONE; +BACITRACIN 50,000 UNIT, POLYMYXIN B 500,000 UNIT in SODIUM CHLORIDE 0.9% IRRIGATIO 1,00... IRRIGATION ONE; +DEXAMETHASONE SOD PHOSPHATE 10 MG/ML 1 ML VIAL IV ONE; +HYDROmorphone 0.5 MG/0.5 ML SYRINGE IVP PRN; +MIDAZOLAM 2 MG/2 ML VIAL IV PRN; +SCOPOLAMINE 1.5MG/72HR PATCH TRANSDERM ONE; -TRANEXAMIC ACID 1,000 MG in SODIUM CHLORIDE 0.9% 50 ML IVPB ONE; -ceFAZolin IN SWFI 2 GM/20 ML SYRINGE IVP ONE
[2019-03-12] MEDS: LACTATED RINGERS 1,000 ML IV SCH ×3 (11:18→20:12)
[2019-03-12] MEDS: ONDANSETRON 4 MG/2 ML VIAL IVP ONE ×2 (11:24→15:11)
[2019-03-12] MEDS ORDERED: fentaNYL (PF) 50 MCG/ML 2 ML AMP ONE (11:34)
[2019-03-12] MEDS ORDERED: ROCURONIUM BROMIDE 10 MG/ML 10 ML VIAL IV ONE (11:34)
[2019-03-12] MEDS ORDERED: LIDOCAINE 1% INJ 10MG/ML (20 ML MDV) ONE (11:34)
[2019-03-12] MEDS ORDERED: NEOSTIGMINE 1 MG/ML 10 ML VIAL ONE (11:34)
[2019-03-12] MEDS ORDERED: SUCCINYLCHOLINE CHLORIDE 100 MG/5 ML SYR IV ONE (11:34)
[2019-03-12] MEDS ORDERED: GLYCOPYRROLATE 0.2 MG/ML 2 ML VIAL ONE (11:34)
[2019-03-12] MEDS ORDERED: ePHEDrine SULFATE/0.9% NACL/PF 50 MG/5 ML SYRINGE IV ONE (11:34)
[2019-03-12] MEDS ORDERED: PHENYLEPHRINE-0.9% NACL SYG 1 MG/10 ML SYRINGE ONE (11:34)
[2019-03-12] MEDS ORDERED: PROPOFOL 10 MG/ML 20 ML VIAL IV ONE (11:34)
[2019-03-12] MEDS ORDERED: MIDAZOLAM 2 MG/2 ML VIAL ONE (11:34)
[2019-03-12] MEDS ORDERED: BUPIVACAIN-EPI 0.25%-1:200,000 30 ML VIAL SQ ONE (11:57)
[2019-03-12] MEDS ORDERED: methylPREDNISolone ACETATE 80 MG/ML 1 ML VIAL INJ ONE ×2 (11:59→12:41)
[2019-03-12] MEDS ORDERED: THROMBIN (BOVINE) 5,000 UNIT VIAL TOPICAL ONE (11:59)
[2019-03-12] MEDS ORDERED: GELATIN SPONGE,ABSORB (SMALL) 1 EACH SPONGE TOPICAL ONE (12:00)
[2019-03-12] MEDS ORDERED: IBUPROFEN 600 MG TAB PO PRN (13:03)
[2019-03-12] MEDS ORDERED: ONDANSETRON 4 MG/2 ML VIAL IVP PRN (13:03)
[2019-03-12] MEDS ORDERED: HYDROmorphone 0.5 MG/0.5 ML SYRINGE IVP PRN (13:03)
[2019-03-12] MEDS ORDERED: MAGNESIUM HYDROXIDE 2,400 MG/10 ML CUP PO PRN (13:03)
[2019-03-12] MEDS ORDERED: HYDROcodone/APAP 5-325MG 1 EACH TAB PO PRN (13:03)
[2019-03-12] MEDS ORDERED: PSYLLIUM HUSK 100% 6 GM PACKET PO PRN (13:05)
[2019-03-12] MEDS ORDERED: ACETAMINOPHEN TAB 500 MG TAB PO PRN (13:05)
[2019-03-12] MEDS ORDERED: PANTOPRAZOLE 40 MG TABLET PO PRN (13:05)
--- NOTE | 2019-03-12 13:12 | P.OP ---
Date of Procedure: 03/12/19 Preoperative Diagnosis: Severe spinal stenosis L4 5, spondylolisthesis L4 5, neurogenic claudication, radiculopathy lower extremities Postoperative Diagnosis: Same Anesthesia: GETA Pathology: none sent Condition: stable Disposition: PACU Description of Procedure: BRIEF OPERATIVE NOTE Preoperative Diagnosis:Severe spinal stenosis L4 5, spondylolisthesis L4 5, neurogenic claudication, radiculopathy lower extremities Postoperative Diagnosis:Severe spinal stenosis L4 5, spondylolisthesis L4 5, neurogenic claudication, radiculopathy lower extremities Procedure: Laminectomy and decompression centrally with wide bilateral foraminotomy and partial medial facetectomy Placement of interlaminar stabilizer (Coflex device) L4 5 Surgeon: Dr. Candelaria Newswriter: Hermelindo Weber is present throughout the entire the case persistence during positioning, dissection, exposure, visualization, and all crucial elements of the case as well as closure. Anesthesia: General anesthesia Estimated blood loss: Approximately 50 mL Complications: None apparent Components implanted: Coflex size 8 interlaminar stabilizer at L4 5 Disposition: To recovery room in good stable condition. OPERATIVE INDICATIONS The patient has been having issues in their lower back and lower extremities. She has been having worsening comes in her bilateral lower extremities with neurogenic claudication which is caused her significant debility and decreased ability to ambulate and go through her activities of daily living. She is found have significant spondylolisthesis with severe stenosis L4 5 . The patient has been through conservative treatment. She had not been having any benefit despite aggressive conservative treatment. We various discussions regards to treatment options including the possibility of laminectomy alone versus possibly of decompression with fusion and possibility of compression with interlaminar stabilization. We discussed limitations all of these various treatment options and possible risks and well. We discussed various treatment options including surgery, and the patient wishes to proceed with surgery We discussed the risk, patient's alternatives and benefits of surgery including but not limited to, risk of bleeding risk of infection, risk of need for further surgery, risk of decreased, loss of motion, loss of function, nerve damage, paralysis, heart attack, blindness and . OPERATIVE SUMMARY After discussing all the risks, patient alternatives and benefits at length, the patient elected to proceed with surgical intervention, signed informed consent, and presented for their procedure. The patient was seen and examined in the preoperative holding area and the surgical site was marked. The patient was g iven antibiotics and brought to the operating room. The patient was sedated and intubated by anesthesia in standard fashion. The patient was positioned on to the operating room table in a prone position on the appropriate frame which was well-padded and well molded. We were careful to pad any bony prominences and pressure points. We were careful to maintain the patient's cervical spine and good neutral alignment and position throughout. The patient was prepped and draped in a normal standard fashion. An appropriate timeout and keystone protocol performed. We were able to proceed with the surgery. Fluoroscopy was utilized to establish the appropriate level. The local wound area was infiltrated with local anesthetic. An incision was made at the midline longitudinally over the appropriate levels at L4 5. Dissection was taken down subcutaneously to the level of the fascia which was split midline. Dissection was taken over the lamina. Intraoperative fluoroscopy was taken which showed a marker at the appropriate level at L4 5. With the appropriate level positively confirmed, we were able to proceed with laminectomy. The wound was copiously irrigated and suctioned dry as had been done periodically throughout the case. I performed a laminectomy with a combination of curettes and a high-speed bur and Kerrison rongeurs. A small medial facetectomy was performed again further access. A partial foraminotomy was also performed. Portions of the ligamentum flavum were taken down to expose the dura and traversing nerve root. Note was made of severe central and bilateral foraminal stenosis which was remedied with the decompression and foraminotomy. I was able to mobilize the traversing nerve root and gain access to the disc space. There is no evidence of any obvious disc herniation or extruded fragments. There is no evidence of dural tear or leak. Good hemostasis maintained. Thewound was copiously irrigated and suctioned dry. Good decompression centrally and at the bilateral neural foramen was noted. At this point I was able to establish the peroneal alignment with the spinous processes. There is no evidence of spondylolysis. I do appropriate sizing for the interlaminar stabilizer and contoured the spinous processes and lamina appropriately. With the probe at size Coflex device I was able to mallet the device in place with good fixation at the interlaminar space with a device approximately 1-2 mm off of the dura. The wings were crimped appropriately for further stabilization. The construct was checked and found to have good stability. We were able to proceed with closure. The fascia was closed for a watertight closure. The subcuticular tissue was closed with absorbable suture. The wound was cleaned and dried and dressed with the appropriate dressing. The drapes were broken down. The patient was gently rolled back onto their hospital bed being careful to maintain their cervical spine and good neutral alignment and position. They were woken up by anesthesia, extubated, and brought to the recovery room in good stable condition. The patient will be admitted to the hospital for observation and for appropriate postoperative care, medical management and monitoring. We will continue to follow them closely about the postoperative course.
[2019-03-12 14:26] VITALS: BMI 26.7
--- NOTE | 2019-03-12 14:51 | XR ---
Limited lumbar spine HISTORY: Lumbar stenosis Single intraoperative C-arm image documents the procedure.
--- NOTE | 2019-03-12 14:51 | FL ---
Fluoroscopy HISTORY: Laminectomy 1 seconds fluoroscopy time supplied to the referring clinician. 1 intraoperative C-arm images docume nt the procedure. See dictated report from orthopedic surgery.
[2019-03-12] MEDS: SODIUM CHLORIDE 0.9% 1,000 ML IV SCH (15:10)
--- NOTE | 2019-03-12 17:10 | P.CONS ---
History of Present Illness - Reason for Consult Consult date: 03/12/19 Medical management of hypertension hyperlipidemia and GERD Requesting physician: Nathanael Candelaria - Chief Complaint Medical management of hypertension hyperlipidemia and GERD - History of Present Illness The patient is a 83-year-old female with a past medical history of essential hypertension hyperlipidemia and GERD who is currently admitted to the primary orthopedic service and is postop day #0 status post laminectomy with central decompression and lateral foraminotomy and partial medial facetectomy secondary to severe spinal stenosisL4-L5, spondylolisthesis L4-L5, neurogenic claudication and lower extremity radiculopathy. Patient mentions some mild lower back pain but is able to move her legs and wiggle her toes without any difficulty. Patient denies any chest pain or shortness of breath she does mention a tickle in her throat and a nonproductive cough, she denies any abdominal pain nausea or vomiting. Review of records indicate that the patient is hemodynamically stable well- controlled blood pressure, she is continued on perioperative antibiotics with cefazolin with IV Dilaudid, Cougar, Motrin, Tylenol as needed for pain. Review of Systems Pertinent positives per HPI all other review of systems was negative Past Medical History Past Medical History: Cancer, GERD/Reflux, Hyperlipidemia, Hypertension, Osteoarthritis (OA) Additional Past Medical History / Comment(s): hx. basal cell skin cancer, stomach ulcer., Right leg pain with numbness. History of Any Multi-Drug Resistant Organisms: None Reported Past Surgical History: Heart Catheterization, Joint Replacement, Orthopedic Surgery Additional Past Surgical History / Comment(s): right shoulder replaced, Janes Total Knees, arthroscopy ajnes knees, cataracts removed, D & C, skin cancer removed., Right Carpal Tunnel, Epidural Pain procedures. Past Anesthesia/Blood Transfusion Reactions: Motion Sickness, Postoperative Nausea & Vomiting (PONV) Additional Past Anesthesia/Blood Transfusion Reaction / Comm: slow to wake up Past Psychological History: No Psychological Hx Reported Smoking Status: Former smoker Past Alcohol Use History: None Reported Additional Past Alcohol Use History / Comment(s): quit smoking 1979, smoked 1ppd for approx. 22 yrs. Past Drug Use History: None Reported - Past Family History Father Family Medical History: Cancer Additional Family Medical History / Comment(s): COLON CANCER Mother Family Medical History: Cancer Additional Family Medical History / Comment(s): KIDNEY CANCER Medications and Allergies Home Medications Medication Instructions Recorded Confirmed Type ALPRAZolam [Xanax] 0.125 mg PO HS PRN 05/16/15 03/12/19 History Aspirin EC [Ecotrin] 81 mg PO DAILY 05/16/15 03/12/19 History Atenolol [Tenormin] 25 mg PO BID 05/16/15 03/12/19 History Simvastatin [Zocor] 20 mg PO HS 05/16/15 03/12/19 History Cholecalciferol [Vitamin D3] 2,000 unit PO DAILY 08/27/17 03/12/19 History Esomeprazole Magnesium [NexIUM] 20 mg PO DAILY PRN 02/27/18 03/12/19 History Psyllium Husk [Metamucil] 0.8 gm PO DAILY PRN 02/27/18 03/12/19 History Acetaminophen [Tylenol Extra 500 - 1,000 mg PO BID PRN 03/05/19 03/12/19 History Strength] HYDROcodone/APAP 5-325MG [Cougar 0.5 tab PO DIRECTED PRN 03/05/19 03/12/19 His tory 5-325] Losartan/Hydrochlorothiazide 1 each PO DAILY 03/05/19 03/12/19 History [Losartan-Hctz 100-25 mg Tab] Allergies Allergy/AdvReac Type Severity Reaction Status Date / Time codeine AdvReac Nausea & Verified 03/12/19 11:05 Vomiting Physical Exam Vitals: Vital Signs Temp Pulse Resp BP Pulse Ox 03/12/19 14:58 97.7 F 63 18 119/63 97 03/12/19 14:14 62 18 117/67 96 03/12/19 13:48 60 16 122/61 97 03/12/19 13:33 62 16 114/55 95 03/12/19 13:15 71 16 112/58 94 L 03/12/19 13:12 97.0 F L 69 16 121/58 94 L 03/12/19 11:03 98.7 F 73 94 H 135/66 94 L Intake and Output 03/12/19 03/12/19 03/12/19 06:59 14:59 22:59 Intake Total 651 Output Total 50 Balance 601 Intake: IV 651 Output: Estimated Blood Loss 50 Other: Weight 70.76 kg Constitutional: No acute distress, conversant, pleasant Eyes: Anicteric sclerae, moist conjunctiva, no lid-lag, PERRLA ENMT: NC/AT,Oropharynx clear, no erythema, exudates Neck:Supple, FROM, no masses, or JVD, No carotid bruits; No thyromegaly Lungs: Clear to auscultation, Clear to percussion, Normal respiratory effort, no accessory muscle use Cardiovascular: Heart regular in rate and rhythm, No murmurs, gallops, or rubs no peripheral edema Abdominal: Soft Nontender, nom distended, no guarding, no rebound or rigidity, Normoactive bowel sounds No hepatomegaly, No splenomegaly, No palpable mass No abdominal wall hernia noted Skin: Normal temperature, tone, texture, turgor, No induration No subcutaneous nodules, No rash, lesions, No ulcers Extremities:No digital cyanosis No clubbing, Pedal pulses intact and sym metrical Radial pulses intact and symmetrical Normal gait and station, No calf tenderness Psychiatric: Alert and oriented to person, place and time, Appropriate affect Intact judgement Neuro: Muscles Strength 5/5 in all 4 extremities, Sensation to light touch grossly present throughout, Cranial nerves II-XII grossly intact. No focal sensory deficits Assessment and Plan (1) Essential hypertension Current Visit: Yes Status: Acute Code(s): I10 - ESSENTIAL (PRIMARY) HYPERTENSION SNOMED Code(s): 74484007 (2) Hyperlipidemia Current Visit: Yes Status: Acute Code(s): E78.5 - HYPERLIPIDEMIA, UNSPECIFIED SNOMED Code(s): 67295209 (3) GERD (gastroesophageal reflux disease) Current Visit: Yes Status: Acute Code(s): K21.9 - GASTRO-ESOPHAGEAL REFLUX DISEASE WITHOUT ESOPHAGITIS SNOMED Code(s): 603025968 (4) Spinal stenosis, lumbar region with neurogenic claudication Current Visit: Yes Status: Acute Code(s): M48.062 - SPINAL STENOSIS, LUMBAR REGION WITH NEUROGENIC CLAUDICATION SNOMED Code(s): 49436651 Plan: The patient is admitted to the primary orthopedic service after having laminectomy and decompression centrally with wide bilateral foraminotomy and partial medial facetectomy secondary to severe lumbar spinal stenosis with neurogenic claudication radiculopathy. I will defer all postoperative pain management to the primary service, agree with continuing perioperative antibiotics. We'll follow recheck of routine labs postoperatively, we will restart her home antihypertensive regimen which include perioperative beta blockers as patient was on atenolol that will now be resumed. We'll continue to follow the patient's clinical course. I appreciate the opportunity to be involved in this patient's care, for further questions please do not hesitate to contact the [place] emergency department
[2019-03-12] MEDS: ATENOLOL 25 MG TAB PO SCH (20:15)
[2019-03-12] MEDS ORDERED: ATORVASTATIN 10 MG TAB PO SCH (21:00)
[2019-03-13] MEDS: SODIUM CHLORIDE 0.9% 1,000 ML IV SCH (03:44)
--- NOTE | 2019-03-13 07:58 | P.DS ---
Providers Date of admission: 03/12/19 Attending physician: Nathanael Candelaria Consults: 03/12/19 13:03 Consult Physician Routine Consulting Provider: [facility] Consult Reason/Comments: Medical management Do you want consulting provider notified?: Yes Primary care physician: Pineda Mckenzie [place] Hospital Course: The patient presented on the day of admission as per their operative note. She has severe spinal stenosis L4 5 with spondylolisthesis and lower extremity radiculopathy and claudication. After failing conservative management she underwent her surgical procedure yesterday as per her operative note. She feels her legs are doing much better she is very impressed with how her legs are doing. She feels her back is sore but she has been able to get around in her room. She is tolerating her regular diet adequately. Physical Exam The incision site is clean dry and intact. There is no erythema no drainage. There is no purulence no evidence of infection. Her back does not show any drainage. The wound site is clear. Abdomen soft and nontender. Chest has good excursion with deep inspiration and expiration. The patient has active and passive range of motion intact at the upper and lower extremities. There is no acute change in neurologic status. She has sustained dorsal flexion plantar flexion and EHL intact. Hospital Course Postoperative day 1 status post decompression laminectomy at L4 5 with placement of interlaminar stabilizer for her severe spinal stenosis with spondylolisthesis and lower extremity radiculopathy and claudication. The patient is doing very well postoperatively and is eager to try to go home today. The patient has been making good progress postoperatively. They have completed the prophylactic antibiotics without any signs or symptoms of infection. The patient has been able to advance their diet, and is tolerating diet adequately. The pain was initially controlled with IV medications and is now controlled appropriately with oral medications. The patient has been able to increase their mobilization. The patient has progressed appropriately. I think they are in good stable condition for discharge today. They will be sent home with appropriate prescriptions. I answered their questions to the best of my ability in a language that they can understand and they are agreeable with the plan. They will follow up as directed. Patient Condition at Discharge: Good Plan - Discharge Summary Discharge Rx Participant: No New Discharge Prescriptions: New HYDROcodone/APAP 5-325MG [Fisk 5] 1 each PO Q6HR PRN #12 tab PRN Reason: Pain No Action Simvastatin [Zocor] 20 mg PO HS Atenolol [Tenormin] 25 mg PO BID Aspirin EC [Ecotrin] 81 mg PO DAILY ALPRAZolam [Xanax] 0.125 mg PO HS PRN PRN Reason: Insomnia Cholecalciferol [Vitamin D3] 2,000 unit PO DAILY Esomeprazole Magnesium [NexIUM] 20 mg PO DAILY PRN PRN Reason: Heartburn Psyllium Husk [Metamucil] 0.8 gm PO DAILY PRN PRN Reason: Constipation Losartan/Hydrochlorothiazide [Losartan-Hctz 100-25 mg Tab] 1 each PO DAILY Acetaminophen [Tylenol Extra Strength] 500 - 1,000 mg PO BID PRN PRN Reason: Pain HYDROcodone/APAP 5-325MG [Fisk 5-325] 0.5 tab PO DIRECTED PRN PRN Reason: Pain Discharge Medication List ALPRAZolam [Xanax] 0.125 mg PO HS PRN 05/16/15 [History] Aspirin EC [Ecotrin] 81 mg PO DAILY 05/16/15 [History] Atenolol [Tenormin] 25 mg PO BID 05/16/15 [History] Simvastatin [Zocor] 20 mg PO HS 05/16/15 [History] Cholecalciferol [Vitamin D3] 2,000 unit PO DAILY 08/27/17 [History] Esomeprazole Magnesium [NexIUM] 20 mg PO DAILY PRN 02/27/18 [History] Psyllium Husk [Metamucil] 0.8 gm PO DAILY PRN 02/27/18 [History] Acetaminophen [Tylenol Extra Strength] 500 - 1,000 mg PO BID PRN 03/05/19 [History] HYDROcodone/APAP 5-325MG [Fisk 5-325] 0.5 tab PO DIRECTED PRN 03/05/19 [History] Losartan/Hydrochlorothiazide [Losartan-Hctz 100-25 mg Tab] 1 each PO DAILY 03/05/19 [History] HYDROcodone/APAP 5-325MG [Fisk 5] 1 each PO Q6HR PRN #12 tab 03/13/19 [Rx] Follow up Appointment(s)/Referral(s): Nathanael Candelaria DO [Doctor of Osteopathic Medicine] - 2 Weeks Activity/Diet/Wound Care/Special Instructions: Keep site clean. May shower with waterproof Tegaderm intact. Do not soak in a tub. After 72 hours postoperatively, patient May remove dressing and then may shower with area uncovered. Leave Steri-Strips intact and allow them to fray off on their own. May ambulate as tolerated. Avoid heavy or rigorous activity. No repetitive bending twisting or lifting. No overhead work.
[2019-03-13] MEDS ORDERED: LOSARTAN-HCTZ 50-12.5 MG 1 EACH TAB PO SCH (09:00)
[2019-03-13] MEDS ORDERED: CHOLECALCIFEROL 1,000 UNIT TAB PO SCH (09:00)
[2019-03-13] MEDS ORDERED: ASPIRIN 81 MG PO SCH (09:00)
[2019-03-13] MEDS: ATENOLOL 25 MG TAB PO SCH (09:32)
[2019-03-13 09:55] VITALS: BP 148/69; PULSE 75; RESP 16; TEMP 97.7
== END 2019-03-13 10:47 ==
LOC: OR 10:22 → 4SSUR 13:54 → OR 03-13 10:47
PROVIDERS: ATTEND Orthopaedic Surgery Orthopaedic Surgery of the Spine
DX: M43.16 Spondylolisthesis, lumbar region (principal); M48.062 Spinal stenosis, lumbar region with neurogenic claudication; M54.16 Radiculopathy, lumbar region; I10 Essential (primary) hypertension; E78.5 Hyperlipidemia, unspecified; K21.9 Gastro-esophageal reflux disease without esophagitis; F41.9 Anxiety disorder, unspecified; M85.80 Other specified disorders of bone density and structure, unspecified site; M15.0 Primary generalized (osteo)arthritis; E87.1 Hypo-osmolality and hyponatremia; Z85.828 Personal history of other malignant neoplasm of skin; Z88.5 Allergy status to narcotic agent; Z79.82 Long term (current) use of aspirin; Z79.899 Other long term (current) drug therapy; Z96.653 Presence of artificial knee joint, bilateral; Z87.891 Personal history of nicotine dependence; Z98.890 Other specified postprocedural states; Z87.19 Personal history of other diseases of the digestive system
CPT/HCPCS: 97161; 72020; 63047; C1713; J2250; J1040; J2710; J0690 ×2; J2405; J2001; J3010; J2370; J0330; J2704; 86850; 86900; 86901

== ENCOUNTER → 2019-12-26 | Outpatient (CLI) | payer MEDICARE ==
--- NOTE | 2019-12-29 11:09 | MM ---
Reason for exam: screening (asymptomatic). Last mammogram was performed 1 year and 5 months ago. History: Patient is postmenopausal, history of other cancer, and is nulliparous. Family history of breast cancer in sister at age 50. Physical Findings: A clinical breast exam by your physician is recommended on an annual basis and results should be correlated with mammographic findings. MG 3D Screening Mammo W/Cad Bilateral CC and MLO view(s) were taken. Prior study comparison: July 17, 2018, bilateral MG 3d screening mammo w/cad. April 02, 2017, bilateral MG 3d screening mammo w/cad. March 30, 2015, bilateral MG screening mammo w CAD. There are scattered fibroglandular densities. There is chronic nodularity bilaterally. No significant changes when compared with prior studies. ASSESSMENT: Negative, BI-RAD 1 RECOMMENDATION: Routine screening mammogram of both breasts in 1 year.
== END | disposition home or self-care (01) ==
LOC: RADMAMWWP 13:31
PROVIDERS: ATTEND Internal Medicine
DX: Z12.31 Encounter for screening mammogram for malignant neoplasm of breast (principal)
CPT/HCPCS: 77063; 77067

== ENCOUNTER → 2020-01-14 | Outpatient (CLI) | payer MEDICARE ==
--- NOTE | 2020-01-15 09:48 | BD ---
EXAMINATION TYPE: Axial Bone Density DATE OF EXAM: 01/14/2020 COMPARISON: 04.02.2017 CLINICAL HISTORY: 84 YR OLD FEMALE....ICD-10 CODE: M89.9 DISORDER OF BONE Height: 61.5 Weight: 161 FRAX RISK QUESTIONS: History of Fracture in Adulthood: YES RISK FACTORS HISTORY OF: RT LOWER LEG FRACTURE AFTER HER 50s HX OF RT WRIST FX A YOUTH Surgery to Spine LAMINECTOMY 03.12.2019 L4 AND L5, LT WRIST SURGERY DECEMBER 2019 Family History of Osteoporosis: NONE KNOWN Postmenopausal woman: YES, IN HER 50s Lost more than 2 inches in height since high school: YES Hyperparathyroidism: NO Adrenal Insufficiency: NO MEDICATIONS: Prednisone or other steroids: YES, FOR POLYMALGIA IN THE PAST NONE NOW Osteoporosis Medications: FOSAMAX 20 YRS AGO, NONE NOW Additional Medications: BP MEDS, REFLUX MEDS, STATIN FOR CHOLESTEROL, VIT D3 Additional History: HYPERTENSION, REFLUX, CHOLESTEROL, OSTEOARTHRITIS EXAM MEASUREMENTS: Bone mineral densitometry was performed using the [facility]. Bone mineral density as measured about the Lumbar spine is: LAMINECTOMY COULD NOT USE LUMBAR FOR STUDY Bone mineral density about the R hip (g/cm2): 0.821 Bone mineral density about the L hip (g/cm2): 0.784 T Score values are as follows: -----R Neck: -1.4 -----L Neck: -1.9 -----R Total: 0.6 -----L Total: 0.3 Bone mineral density has: Decreased -2.8% since study of: 04.02.2017 FRAX%s: THERE IS A 21.6% CHANCE FOR A MAJOR OSTEOPOROTIC FX AND A 5.9% FOR HIP....PROBABILITY FOR FX IN 10 YRS TIME IMPRESSION: Osteopenia (T Score between -2.5 and -1). There is slightly increased risk of fracture and the patient may be considered for treatment. Re-Screen 2-5 years. NOTE: T-SCORE=SD OF THE YOUNG ADULT MEAN.
== END | disposition home or self-care (01) ==
LOC: RADBDWWP 13:04
PROVIDERS: ATTEND Internal Medicine
DX: M85.80 Other specified disorders of bone density and structure, unspecified site (principal)
CPT/HCPCS: 77080

== ENCOUNTER 2020-08-14 11:51 | Emergency (ER) | payer MEDICARE ==
[2020-08-14 12:17] VITALS: RESP 16
[2020-08-14] MEDS ORDERED: ASPIRIN 81 MG PO STA (12:19)
[2020-08-14 12:33] LABS: Basophils # (A) 0.1 k/uL (0-0.2); Basophils % (A) 1 %; Eosinophils # (A) 0.1 k/uL (0-0.7); Eosinophils % (A) 1 %; HCT 42.8 % (34.0-46.0); HGB 14.6 gm/dL (11.4-16.0); Lymphocytes # (A) 1.9 k/uL (1.0-4.8); Lymphocytes % (A) 19 %; MCH 30.5 pg (25.0-35.0); MCV 89.6 fL (80.0-100.0); Monocytes # (A) 0.5 k/uL (0-1.0); Monocytes % (A) 4 %; Neutrophils # (A) 7.5 k/uL (1.3-7.7); Neutrophils % (A) 74 %; Platelet Count 284 k/uL (150-450); RBC 4.78 m/uL (3.80-5.40); RDW 12.9 % (11.5-15.5); WBC 10.1 k/uL (3.8-10.6)
[2020-08-14 12:41] LABS: Albumin 4.7 g/dL (3.5-5.0); Calcium 10.5 mg/dL (8.4-10.2); Magnesium 1.7 mg/dL (1.6-2.3); Potassium 4.2 mmol/L (3.5-5.1); Total Bilirubin 0.5 mg/dL (0.2-1.3)
[2020-08-14 12:55] LABS: D-Dimer 0.58 mg/L FEU (<0.60); INR 0.9 (<1.2); Partial Thromboplastin Time 24.7 sec (22.0-30.0); Prothrombin Time 10.2 sec (9.0-12.0)
--- NOTE | 2020-08-14 12:55 | ED ---
Chest Pain HPI - General Chief Complaint: Chest Pain Stated Complaint: Left side pain, elevated BP Time Seen by Provider: 08/14/20 11:59 Source: patient, RN notes reviewed Mode of arrival: ambulatory Limitations: no limitations - History of Present Illness Initial Comments: This is a 84-year-old female who presents with complaints as chest discomfort th is morning she states was somewhat dull and achy in nature intermediate and strength it is intermittent she has nothing that can make it better or worse. No cough fevers chills nausea vomiting sweats no other symptoms. She states it seems be to the lateral aspect and underneath her left breast. No recent trauma no other modifying factors at this time MD Complaint: chest pain - Related Data Home Medications Medication Instructions Recorded Confirmed ALPRAZolam [Xanax] 0.125 mg PO HS PRN 05/16/15 08/14/20 Aspirin EC [Ecotrin] 81 mg PO DAILY 05/16/15 08/14/20 Simvastatin [Zocor] 20 mg PO HS 05/16/15 08/14/20 atenoloL [Tenormin] 25 mg PO BID 05/16/15 08/14/20 Cholecalciferol [Vitamin D3] 2,000 unit PO DAILY 08/27/17 08/14/20 Esomeprazole Magnesium [NexIUM] 20 mg PO DAILY PRN 02/27/18 08/14/20 Psyllium Husk [Metamucil] 0.8 gm PO DAILY PRN 02/27/18 08/14/20 Acetaminophen [Tylenol Extra 500 - 1,000 mg PO BID PRN 03/05/19 08/14/20 Strength] Docusate [Colace] 100 mg PO BID 08/14/20 08/14/20 Famotidine 20 mg PO DAILY 08/14/20 08/14/20 Losartan Potassium 100 mg PO DAILY 08/14/20 08/14/20 hydroCHLOROthiazide 25 mg PO DAILY 08/14/20 08/14/20 Allergies Allergy/AdvReac Type Severity Reaction Status Date / Time codeine AdvReac Nausea & Verified 08/14/20 13:24 Vomiting Review of Systems ROS Statement: Those systems with pertinent positive or pertinent negative responses have been documented in the HPI. ROS Other: All systems not noted in ROS Statement are negative. EKG Findings - EKG Results: EKG: interpreted by ERMD, sinus rhythm (sinus rhythm rate is 78 CO interval 160 QRS sabianism 92 QT since QTC 348/396 nonspecific inferior configuration) Past Medical History Past Medical History: Cancer, Hyperlipidemia, Hypertension, Osteoarthritis (OA) Additional Past Medical History / Comment(s): hx. basal cell skin cancer, stomach ulcer, recent cold sx-seeing victoriano llanos. w/Bactrim recently for abnormal UA result History of Any Multi-Drug Resistant Organisms: None Reported Past Surgical History: Heart Catheterization, Joint Replacement, Orthopedic Surgery Additional Past Surgical History / Comment(s): right shoulder replaced, left knee replaced, arthroscopy jennifer knees, cataracts removed, D & C, skin cancer removed Past Anesthesia/Blood Transfusion Reactions: Motion Sickness, Postoperative Nausea & Vomiting (PONV) Additional Past Anesthesia/Blood Transfusion Reaction / Comment(s): slow to wake up Past Psychological History: No Psychological Hx Reported Smoking Status: Never smoker Past Alcohol Use History: None Reported Past Drug Use History: None Reported - Past Family History Father Family Medical History: Cancer Additional Family Medical History / Comment(s): COLON CANCER Mother Family Medical History: Cancer Additional Family Medical History / Comment(s): KIDNEY CANCER General Exam - General Exam Comments Initial Comments: is a well-developed well-nourished awake alert oriented 3 female Limitations: no limitations General appearance: alert, in no apparent distress Head exam: Present: atraumatic, normocephalic, normal inspection Eye exam: Present: normal appearance, PERRL, EOMI. Absent: scleral icterus, conjunctival injection, periorbital swelling ENT exam: Present: normal exam, mucous membranes moist Neck exam: Present: normal inspection. Absent: tenderness, meningismus, lymphadenopathy Respiratory exam: Present: normal lung sounds bilaterally, chest wall tenderness (some tenderness palpation of the left costal sternal margin no step-off no crepitation patient states this does somewhat reproduce the discomfort she was having.). Absent: respiratory distress, wheezes, rales, rhonchi, stridor Cardiovascular Exam: Present: regular rate, normal rhythm, normal heart sounds. Absent: systolic murmur, diastolic murmur, rubs, gallop, clicks GI/Abdominal exam: Present: soft, normal bowel sounds. Absent: distended, tenderness, guarding, rebound, rigid Extremities exam: Present: normal inspection, full ROM, normal capillary refill. Absent: tenderness, pedal edema, joint swelling, calf tenderness Back exam: Present: normal inspection Neurological exam: Present: alert, oriented X3, CN II-XII intact Psychiatric exam: Present: normal affect, normal mood Skin exam: Present: warm, dry, intact, normal color. Absent: rash Course Vital Signs 08/14/20 08/14/20 08/14/20 11:55 12:13 12:17 Temperature 98.3 F Pulse Rate 46 L 76 Pulse Rate [ 80 [employer] ] Respiratory 20 16 16 Rate Blood Pressure 185/68 170/85 O2 Sat by Pulse 96 100 Oximetry 08/14/20 08/14/20 13:00 14:27 Temperature 98.1 F Pulse Rate 68 68 Pulse Rate [ [employer] ] Respiratory 16 16 Rate Blood Pressure 145/80 162/81 O2 Sat by Pulse 100 100 Oximetry - Reevaluation(s) Reevaluation #1: 08/14/20 12:58 the EKG performed today is compared with one dated 08/27/17 showing similar configuration. Chest Pain MDM - MDM I did review the imaging and report no acute findings. Patient and I had a discussion regarding findings it does appear to be musculoskeletal in origin patient will be discharged she is follow-up with her doctor return when necessary Disposition Clinical Impression: Costochondritis, Chest wall syndrome Disposition: HOME SELF-CARE Condition: Good Instructions (If sedation given, give patient instructions): Costochondritis (ED) Additional Instructions: warm compresses to the affected area, [id number] Advil or Tylenol for pain, follow-up with her doctor Is patient prescribed a controlled substance at d/c from ED?: No Referrals: Florecita Alegria MD [Primary Care Provider] - 1-2 days
--- NOTE | 2020-08-14 13:00 | XR ---
EXAMINATION TYPE: XR chest 2V DATE OF EXAM: 08/14/2020 COMPARISON: 03/05/2019 Technique: PA and lateral views the chest are obtained. The lungs are clear consolidative, interstitial masslike opacity. There is no pleural effusion, pleural thickening or pneumothorax. Heart and pulmonary vasculature mediastinum and hilum appear normal. There is a right shoulder prosthesis. The remaining osseous structures are intact. IMPRESSION: No acute cardiopulmonary disease.
[2020-08-14 13:07] VITALS: PULSE 68
[2020-08-14 14:28] VITALS: BP 162/81; TEMP 98.1
== END 2020-08-14 14:40 | disposition home or self-care (01) ==
LOC: EC 11:51
DX: M94.0 Chondrocostal junction syndrome [Tietze] (principal); I10 Essential (primary) hypertension; M19.90 Unspecified osteoarthritis, unspecified site; E78.5 Hyperlipidemia, unspecified; Z79.899 Other long term (current) drug therapy; Z79.82 Long term (current) use of aspirin; Z88.5 Allergy status to narcotic agent; Z96.611 Presence of right artificial shoulder joint; Z85.828 Personal history of other malignant neoplasm of skin; Z96.652 Presence of left artificial knee joint
CPT/HCPCS: 36415; 71046; 80053; 82550; 83690; 83735; 83880; 84484; 85025; 85379; 85610; 85730; 93005; 99285

== ENCOUNTER 2021-11-29 07:44 | Emergency (ER) | payer MEDICARE ==
[2021-11-29] MEDS ORDERED: ONDANSETRON 4 MG/2 ML VIAL IVP STA (08:31)
[2021-11-29] MEDS ORDERED: SODIUM CHLORIDE 0.9% 1,000 ML IV STA (08:31)
[2021-11-29 08:48] LABS: Basophils % (A) 0 %; Eosinophils # (A) 0.2 k/uL (0-0.7); Eosinophils % (A) 2 %; HCT 40.3 % (34.0-46.0); HGB 13.3 gm/dL (11.4-16.0); Lymphocytes # (A) 0.9 k/uL (1.0-4.8); Lymphocytes % (A) 8 %; MCHC 33.1 g/dL (31.0-37.0); MCV 90.6 fL (80.0-100.0); Mean Platelet Volume 7.9; Monocytes # (A) 0.3 k/uL (0-1.0); Monocytes % (A) 3 %; Neutrophils # (A) 10.9 k/uL (1.3-7.7); Neutrophils % (A) 87 %; Platelet Count 275 k/uL (150-450); RBC 4.44 m/uL (3.80-5.40); RDW 13.1 % (11.5-15.5); WBC 12.5 k/uL (3.8-10.6)
--- NOTE | 2021-11-29 09:06 | XR ---
EXAMINATION TYPE: XR chest 2V DATE OF EXAM: 11/29/2021 COMPARISON: 08/14/2020 HISTORY: 86-year-old female abdominal pain TECHNIQUE: PA and lateral views FINDINGS: Heart upper limits of normal in size. Mild interstitial prominence is unchanged. No consolidation or pleural effusion. Partially visualized right shoulder arthroplasty. Accentuated mid thoracic kyphosis . IMPRESSION: Chronic changes. No acute process seen.
--- NOTE | 2021-11-29 09:07 | XR ---
EXAMINATION TYPE: XR KUB DATE OF EXAM: 11/29/2021 8:55 AM CLINICAL HISTORY: Abdominal pain and diarrhea. TECHNIQUE: Single supine KUB image of the abdomen is obtained. COMPARISON: None. FINDINGS: Gasless in a nondistended stomach. Scattered gas is seen in non-distended small bowel loops . Gas and fecal material is seen in non-distended colon. Dextroconvex scoliosis centered at thoracolu mbar junction. Surgical change L4-L5 level. Overlying EKG leads. No suspicious calcifications. IMPRESSION: Overall nonobstructive bowel gas pattern.
--- NOTE | 2021-11-29 09:09 | ED ---
General Adult HPI - General Chief complaint: Nausea/Vomiting/Diarrhea Stated complaint: diarrhea, cough Time Seen by Provider: 11/29/21 08:04 Source: patient Mode of arrival: ambulatory Limitations: no limitations - History of Present Illness Initial comments: 86-year-old female with past medical history of irritable bowel, peptic ulcer disease, hypertension presents emergency room with reported diarrhea. Patient states that she has had diarrhea for the past 3 days. Not uncommon for her to have loose stools. States she'll go 2 days without having a bowel movement and then have loose stools when she is able to go. She takes fiber every day as w ell as IBguard. She follows with Dr. Bhakta. States the duration of this diarrhea is uncommon for her. Also again developing a nonproductive cough and therefore came into the emergency room for evaluation. She denies any chest pain. No fevers. Denies any sick contacts. No abdominal pain. No other alleviating, precipitating factors - Related Data Home Medications Medication Instructions Recorded Confirmed ALPRAZolam [Xanax] 0.125 mg PO HS PRN 05/16/15 08/14/20 Aspirin EC [Ecotrin] 81 mg PO DAILY 05/16/15 08/14/20 Simvastatin [Zocor] 20 mg PO HS 05/16/15 08/14/20 atenoloL [Tenormin] 25 mg PO BID 05/16/15 08/14/20 Cholecalciferol [Vitamin D3] 2,000 unit PO DAILY 08/27/17 08/14/20 Esomeprazole Magnesium [NexIUM] 20 mg PO DAILY PRN 02/27/18 08/14/20 Psyllium Husk [Metamucil] 0.8 gm PO DAILY PRN 02/27/18 08/14/20 Acetaminophen [Tylenol Extra 500 - 1,000 mg PO BID PRN 03/05/19 08/14/20 Strength] Docusate [Colace] 100 mg PO BID 08/14/20 08/14/20 Famotidine 20 mg PO DAILY 08/14/20 08/14/20 Losartan Potassium 100 mg PO DAILY 08/14/20 08/14/20 hydroCHLOROthiazide 25 mg PO DAILY 08/14/20 08/14/20 Allergies Allergy/AdvReac Type Severity Reaction Status Date / Time codeine AdvReac Nausea & Verified 11/29/21 07:51 Vomiting Review of Systems ROS Statement: Those systems with pertinent positive or pertinent negative responses have been documented in the HPI. ROS Other: All systems not noted in ROS Statement are negative. Past Medical History Past Medical History: Cancer, Hyperlipidemia, Hypertension, Osteoarthritis (OA) Additional Past Medical History / Comment(s): hx. basal cell skin cancer, stomach ulcer, recent cold sx-seeing tx. viet w/Bactrim recently for abnormal UA result History of Any Multi-Drug Resistant Organisms: None Reported Past Surgical History: Heart Catheterization, Joint Replacement, Orthopedic Surgery Additional Past Surgical History / Comment(s): right shoulder replaced, left knee replaced, arthroscopy jennifer knees, cataracts removed, D & C, skin cancer removed Past Anesthesia/Blood Transfusion Reactions: Motion Sickness, Postoperative Nausea & Vomiting (PONV) Additional Past Anesthesia/Blood Transfusion Reaction / Comment(s): slow to wake up Past Psychological History: No Psychological Hx Reported Smoking Status: Never smoker Past Alcohol Use History: None Reported Past Drug Use History: None Reported - Past Family History Father Family Medical History: Cancer Additional Family Medical History / Comment(s): COLON CANCER Mother Family Medical History: Cancer Additional Family Medical History / Comment(s): KIDNEY CANCER General Exam Limitations: no limitations General appearance: alert, in no apparent distress Head exam: Present: atraumatic, normocephalic, normal inspection Eye exam: Present: normal appearance, PERRL, EOMI. Absent: scleral icterus, conjunctival injection, periorbital swelling ENT exam: Present: normal exam, mucous membranes moist Neck exam: Present: normal inspection. Absent: tenderness, meningismus, lymphadenopathy Respiratory exam: Present: normal lung sounds bilaterally. Absent: respiratory distress, wheezes, rales, rhonchi, stridor Cardiovascular Exam: Present: regular rate, normal rhythm, normal heart sounds. Absent: systolic murmur, diastolic murmur, rubs, gallop, clicks GI/Abdominal exam: Present: soft, normal bowel sounds. Absent: distended, tenderness, guarding, rebound, rigid Extremities exam: Present: normal inspection, full ROM, normal capillary refill. Absent: tenderness, pedal edema, joint swelling, calf tenderness Back exam: Present: normal inspection Neurological exam: Present: alert, oriented X3, CN II-XII intact Psychiatric exam: Present: normal affect, normal mood Skin exam: Present: warm, dry, intact, normal color. Absent: rash Course Vital Signs 11/29/21 11/29/21 11/29/21 07:48 11:13 11:53 Temperature 97.5 F L 97.8 F Pulse Rate 96 64 64 Respiratory 20 16 16 Rate Blood Pressure 169/79 116/96 103/87 O2 Sat by Pulse 96 97 97 Oximetry EKG Findings - EKG Comments: EKG Findings:: EKG demonstrates sinus rhythm with a rate of 71. NJ interval 167. QRS 11. QTC 382. No acute ST segment elevations or depressions Medical Decision Making - Medical Decision Making Upon arrival the patient is placed in room 8. A thorough history and physical exam is performed. IV access established and the patient is given a liter bolus of normal saline informal grams of Zofran. Laboratory studies are conducted. Sodium mildly low at 1:30. Magnesium 1.5. Urinalysis is not a clean specimen. Occult is negative. C. diff, Covid wounds are all negative. Chest x-ray demonstrates no acute process. KUB demonstrates no abnormal bowel gas pattern. Patient is reevaluated. Diagnosis, differential and treatment options discussed with the patient. Recommended use of Imodium, Bentyl or Lomotil at home. Patient states that she does have Imodium and will take this as directed. She is instructed to follow-up with her GI doctor and return for any new or worsening symptoms. Patient agreed to the treatment plan and was discharged home in stable condition - Lab Data Result diagrams: 11/29/21 08:33 11/29/21 08:33 Lab Results 11/29/21 11/29/21 11/29/21 Range/Units 08:08 08:08 08:33 WBC 12.5 H (3.8-10.6) k/uL RBC 4.44 (3.80-5.40) m/uL Hgb 13.3 (11.4-16.0) gm/dL Hct 40.3 (34.0-46.0) % MCV 90.6 (80.0-100.0) fL MCH 30.0 (25.0-35.0) pg MCHC 33.1 (31.0-37.0) g/dL RDW 13.1 (11.5-15.5) % Plt Count 275 (150-450) k/uL MPV 7.9 Neutrophils % 87 % Lymphocytes % 8 % Monocytes % 3 % Eosinophils % 2 % Basophils % 0 % Neutrophils # 10.9 H (1.3-7.7) k/uL Lymphocytes # 0.9 L (1.0-4.8) k/uL Monocytes # 0.3 (0-1.0) k/uL Eosinophils # 0.2 (0-0.7) k/uL Basophils # 0.0 (0-0.2) k/uL Sodium (137-145) mmol/L Potassium (3.5-5.1) mmol/L Chloride (98-107) mmol/L Carbon Dioxide (22-30) mmol/L Anion Gap mmol/L BUN (7-17) mg/dL Creatinine (0.52-1.04) mg/dL Est GFR (CKD-EPI)AfAm (>60 ml/min/1.73 sqM) Est GFR (CKD-EPI)NonAf (>60 ml/min/1.73 sqM) Glucose (74-99) mg/dL Plasma Lactic Acid Abel (0.7-2.0) mmol/L Calcium (8.4-10.2) mg/dL Magnesium (1.6-2.3) mg/dL Total Bilirubin (0.2-1.3) mg/dL AST (14-36) U/L ALT (4-34) U/L Alkaline Phosphatase (38-126) U/L Troponin I (0.000-0.034) ng/mL Total Protein (6.3-8.2) g/dL Albumin (3.5-5.0) g/dL Lipase (23-300) U/L Urine Color Urine Appearance (Clear) Urine pH (5.0-8.0) Ur Specific [place] (1.001-1.035) Urine Protein (Negative) Urine Glucose (UA) (Negative) Urine Ketones (Negative) Urine Blood (Negative) Urine Nitrite (Negative) Urine Bilirubin (Negative) Urine Urobilinogen (<2.0) mg/dL Ur Leukocyte Esterase (Negative) Urine RBC (0-5) /hpf Urine WBC (0-5) /hpf Ur Squamous Epith Cells (0-4) /hpf Urine Bacteria (None) /hpf Urine Mucus (None) /hpf Stool Occult Blood (Negative) C. difficile (EIA) Intrp (Negative) Coronavirus (PCR) Not Detected (Not Detectd) Influenza Type A RNA Not Detected (Not Detectd) Influenza Type B (PCR) Not Detected (Not Detectd) 11/29/21 11/29/21 11/29/21 Range/Units 08:33 08:33 08:33 WBC (3.8-10.6) k/uL RBC (3.80-5.40) m/uL Hgb (11.4-16.0) gm/dL Hct (34.0-46.0) % MCV (80.0-100.0) fL MCH (25.0-35.0) pg MCHC (31.0-37.0) g/dL RDW (11.5-15.5) % Plt Count (150-450) k/uL MPV Neutrophils % % Lymphocytes % % Monocytes % % Eosinophils % % Basophils % % Neutrophils # (1.3-7.7) k/uL Lymphocytes # (1.0-4.8) k/uL Monocytes # (0-1.0) k/uL Eosinophils # (0-0.7) k/uL Basophils # (0-0.2) k/uL Sodium 130 L (137-145) mmol/L Potassium 3.7 (3.5-5.1) mmol/L Chloride 98 (98-107) mmol/L Carbon Dioxide 23 (22-30) mmol/L Anion Gap 9 mmol/L BUN 15 (7-17) mg/dL Creatinine 0.74 (0.52-1.04) mg/dL Est GFR (CKD-EPI)AfAm 86 (>60 ml/min/1.73 sqM) Est GFR (CKD-EPI)NonAf 74 (>60 ml/min/1.73 sqM) Glucose 136 H (74-99) mg/dL Plasma Lactic Acid Abel 1.2 (0.7-2.0) mmol/L Calcium 9.6 (8.4-10.2) mg/dL Magnesium (1.6-2.3) mg/dL Total Bilirubin 0.6 (0.2-1.3) mg/dL AST 26 (14-36) U/L ALT 15 (4-34) U/L Alkaline Phosphatase 54 (38-126) U/L Troponin I (0.000-0.034) ng/mL Total Protein 6.7 (6.3-8.2) g/dL Albumin 4.0 (3.5-5.0) g/dL Lipase 102 (23-300) U/L Urine Color Yellow Urine Appearance Cloudy H (Clear) Urine pH 7.0 (5.0-8.0) Ur Specific [place] 1.014 (1.001-1.035) Urine Protein Negative (Negative) Urine Glucose (UA) Negative (Negative) Urine Ketones Negative (Negative) Urine Blood Negative (Negative) Urine Nitrite Negative (Negative) Urine Bilirubin Negative (Negative) Urine Urobilinogen <2.0 (<2.0) mg/dL Ur Leukocyte Esterase Moderate H (Negative) Urine RBC 1 (0-5) /hpf Urine WBC 10 H (0-5) /hpf Ur Squamous Epith Cells 6 H (0-4) /hpf Urine Bacteria Occasional H (None) /hpf Urine Mucus Occasional H (None) /hpf Stool Occult Blood (Negative) C. difficile (EIA) Intrp (Negative) Coronavirus (PCR) (Not Detectd) Influenza Type A RNA (Not Detectd) Influenza Type B (PCR) (Not Detectd) 11/29/21 11/29/21 11/29/21 Range/Units 08:33 08:33 08:33 WBC (3.8-10.6) k/uL RBC (3.80-5.40) m/uL Hgb (11.4-16.0) gm/dL Hct (34.0-46.0) % MCV (80.0-100.0) fL MCH (25.0-35.0) pg MCHC (31.0-37.0) g/dL RDW (11.5-15.5) % Plt Count (150-450) k/uL MPV Neutrophils % % Lymphocytes % % Monocytes % % Eosinophils % % Basophils % % Neutrophils # (1.3-7.7) k/uL Lymphocytes # (1.0-4.8) k/uL Monocytes # (0-1.0) k/uL Eosinophils # (0-0.7) k/uL Basophils # (0-0.2) k/uL Sodium (137-145) mmol/L Potassium (3.5-5.1) mmol/L Chloride (98-107) mmol/L Carbon Dioxide (22-30) mmol/L Anion Gap mmol/L BUN (7-17) mg/dL Creatinine (0.52-1.04) mg/dL Est GFR (CKD-EPI)AfAm (>60 ml/min/1.73 sqM) Est GFR (CKD-EPI)NonAf (>60 ml/min/1.73 sqM) Glucose (74-99) mg/dL Plasma Lactic Acid Abel (0.7-2.0) mmol/L Calcium (8.4-10.2) mg/dL Magnesium 1.5 L (1.6-2.3) mg/dL Total Bilirubin (0.2-1.3) mg/dL AST (14-36) U/L ALT (4-34) U/L Alkaline Phosphatase (38-126) U/L Troponin I <0.012 (0.000-0.034) ng/mL Total Protein (6.3-8.2) g/dL Albumin (3.5-5.0) g/dL Lipase (23-300) U/L Urine Color Urine Appearance (Clear) Urine pH (5.0-8.0) Ur Specific [place] (1.001-1.035) Urine Protein (Negative) Urine Glucose (UA) (Negative) Urine Ketones (Negative) Urine Blood (Negative) Urine Nitrite (Negative) Urine Bilirubin (Negative) Urine Urobilinogen (<2.0) mg/dL Ur Leukocyte Esterase (Negative) Urine RBC (0-5) /hpf Urine WBC (0-5) /hpf Ur Squamous Epith Cells (0-4) /hpf Urine Bacteria (None) /hpf Urine Mucus (None) /hpf Stool Occult Blood (Negative) C. difficile (EIA) Intrp Negative (Negative) Coronavirus (PCR) (Not Detectd) Influenza Type A RNA (Not Detectd) Influenza Type B (PCR) (Not Detectd) 11/29/21 Range/Units 08:33 WBC (3.8-10.6) k/uL RBC (3.80-5.40) m/uL Hgb (11.4-16.0) gm/dL Hct (34.0-46.0) % MCV (80.0-100.0) fL MCH (25.0-35.0) pg MCHC (31.0-37.0) g/dL RDW (11.5-15.5) % Plt Count (150-450) k/uL MPV Neutrophils % % Lymphocytes % % Monocytes % % Eosinophils % % Basophils % % Neutrophils # (1.3-7.7) k/uL Lymphocytes # (1.0-4.8) k/uL Monocytes # (0-1.0) k/uL Eosinophils # (0-0.7) k/uL Basophils # (0-0.2) k/uL Sodium (137-145) mmol/L Potassium (3.5-5.1) mmol/L Chloride (98-107) mmol/L Carbon Dioxide (22-30) mmol/L Anion Gap mmol/L BUN (7-17) mg/dL Creatinine (0.52-1.04) mg/dL Est GFR (CKD-EPI)AfAm (>60 ml/min/1.73 sqM) Est GFR (CKD-EPI)NonAf (>60 ml/min/1.73 sqM) Glucose (74-99) mg/dL Plasma Lactic Acid Abel (0.7-2.0) mmol/L Calcium (8.4-10.2) mg/dL Magnesium (1.6-2.3) mg/dL Total Bilirubin (0.2-1.3) mg/dL AST (14-36) U/L ALT (4-34) U/L Alkaline Phosphatase (38-126) U/L Troponin I (0.000-0.034) ng/mL Total Protein (6.3-8.2) g/dL Albumin (3.5-5.0) g/dL Lipase (23-300) U/L Urine Color Urine Appearance (Clear) Urine pH (5.0-8.0) Ur Specific [place] (1.001-1.035) Urine Protein (Negative) Urine Glucose (UA) (Negative) Urine Ketones (Negative) Urine Blood (Negative) Urine Nitrite (Negative) Urine Bilirubin (Negative) Urine Urobilinogen (<2.0) mg/dL Ur Leukocyte Esterase (Negative) Urine RBC (0-5) /hpf Urine WBC (0-5) /hpf Ur Squamous Epith Cells (0-4) /hpf Urine Bacteria (None) /hpf Urine Mucus (None) /hpf Stool Occult Blood Negative (Negative) C. difficile (EIA) Intrp (Negative) Coronavirus (PCR) (Not Detectd) Influenza Type A RNA (Not Detectd) Influenza Type B (PCR) (Not Detectd) Disposition Clinical Impression: Diarrhea Disposition: HOME SELF-CARE Condition: Stable Instructions (If sedation given, give patient instructions): Acute Diarrhea (ED) Additional Instructions: Please take the Imodium as directed and follow-up with your primary care doctor in 2 to 4 days. Return for any new or worsening symptoms. Is patient prescribed a controlled substance at d/c from ED?: No Referrals: Florecita Alegria MD [Primary Care Provider] - 1-2 days Time of Disposition: 11:40
[2021-11-29 09:11] LABS: Calcium 9.6 mg/dL (8.4-10.2); Potassium 3.7 mmol/L (3.5-5.1); Total Bilirubin 0.6 mg/dL (0.2-1.3); Total Protein 6.7 g/dL (6.3-8.2)
[2021-11-29 09:56] LABS: Appearance,Urine Cloudy (Clear); Bacteria,Urine Occasional /hpf; Bilirubin,Urine Negative (Negative); Blood,Urine Negative (Negative); Color,Urine Yellow; Glucose,Urine (UA) Negative (Negative); Ketones,Urine Negative (Negative); Leukocyte Esterase,Urine Moderate (Negative); Mucus,Urine Occasional /hpf; Nitrite,Urine Negative (Negative); Protein,Urine Negative (Negative); RBC,Urine 1 /hpf (0-5); Specific Gravity,Urine 1.014 (1.001-1.035); Squamous Epithelial Cell,Urine 6 /hpf (0-4); Urobilinogen,Urine <2.0 mg/dL (<2.0); WBC,Urine 10 /hpf (0-5)
[2021-11-29 11:16] VITALS: PULSE 64; RESP 16
[2021-11-29 11:54] VITALS: BP 103/87; TEMP 97.8
== END 2021-11-29 11:53 | disposition home or self-care (01) ==
LOC: EC 07:44
DX: R19.7 Diarrhea, unspecified (principal); R05.9 Cough, unspecified; I10 Essential (primary) hypertension; E78.5 Hyperlipidemia, unspecified; M19.90 Unspecified osteoarthritis, unspecified site; Z88.5 Allergy status to narcotic agent; Z79.82 Long term (current) use of aspirin; Z79.899 Other long term (current) drug therapy; Z20.822 Contact with and (suspected) exposure to COVID-19
CPT/HCPCS: 36415; 93005; 80053; 83605; 83690; 83735; 84484; 85025; 82272; 81001; 87324; 87045; 87046; 87502; 87635; 71046; 74018; 99284; 96374; 96361; J2405

== ENCOUNTER 2022-12-12 18:13 | Emergency (ER) | payer MEDICARE ==
--- NOTE | 2022-12-12 19:25 | ED ---
Abdominal Pain HPI - General Stated Complaint: diarrhea weak Time Seen by Provider: 12/12/22 19:25 Source: RN notes reviewed - History of Present Illness Initial Comments: Patient is an 87-year-old female presents to the emergency department for lower abdominal pain and diarrhea. It started 2 days ago. Patient has mild pain in her left lower abdomen. She has had 3-4 episodes of diarrhea daily, nonbloody. She denies fever, chills. She has nausea without vomiting. Patient had a colonoscopy a few years ago states she has history of diverticulosis. - Related Data Home Medications Medication Instructions Recorded Confirmed ALPRAZolam [Xanax] 0.125 mg PO HS PRN 05/16/15 08/14/20 Aspirin EC [Ecotrin] 81 mg PO DAILY 05/16/15 08/14/20 Simvastatin [Zocor] 20 mg PO HS 05/16/15 08/14/20 atenoloL [Tenormin] 25 mg PO BID 05/16/15 08/14/20 Cholecalciferol [Vitamin D3] 2,000 unit PO DAILY 08/27/17 08/14/20 Esomeprazole Magnesium [NexIUM] 20 mg PO DAILY PRN 02/27/18 08/14/20 Psyllium Husk [Metamucil] 0.8 gm PO DAILY PRN 02/27/18 08/14/20 Acetaminophen [Tylenol Extra 500 - 1,000 mg PO BID PRN 03/05/19 08/14/20 Strength] Docusate [Colace] 100 mg PO BID 08/14/20 08/14/20 Famotidine 20 mg PO DAILY 08/14/20 08/14/20 Losartan Potassium 100 mg PO DAILY 08/14/20 08/14/20 hydroCHLOROthiazide 25 mg PO DAILY 08/14/20 08/14/20 Previous Rx's Medication Instructions Recorded Acetaminophen Tab [Tylenol] 650 mg PO Q4H PRN #30 tab 12/12/22 Amoxic-Pot Clav 875-125Mg 1 tab PO BID 10 Days #20 tab 12/12/22 [Augmentin 875-125] Ondansetron Odt [Zofran Odt] 4 mg PO Q8HR PRN #10 tab 12/12/22 Allergies Allergy/AdvReac Type Severity Reaction Status Date / Time codeine AdvReac Nausea & Verified 12/12/22 22:25 Vomiting Review of Systems ROS Statement: Those systems with pertinent positive or pertinent negative responses have been documented in the HPI. ROS Other: All systems not noted in ROS Statement are negative. Past Medical History Past Medical History: Cancer, Hyperlipidemia, Hypertension, Osteoarthritis (OA) Additional Past Medical History / Comment(s): hx. basal cell skin cancer, stomach ulcer, recent cold sx-seeing victoriano llanos. w/Bactrim recently for abnormal UA result History of Any Multi-Drug Resistant Organisms: None Reported Past Surgical History: Heart Catheterization, Joint Replacement, Orthopedic Surgery Additional Past Surgical History / Comment(s): right shoulder replaced, left knee replaced, arthroscopy jennifer knees, cataracts removed, D & C, skin cancer removed Past Anesthesia/Blood Transfusion Reactions: Motion Sickness, Postoperative Nausea & Vomiting (PONV) Additional Past Anesthesia/Blood Transfusion Reaction / Comment(s): slow to wake up Past Psychological History: No Psychological Hx Reported Smoking Status: Never smoker Past Alcohol Use History: None Reported Past Drug Use History: None Reported - Past Family History Father Family Medical History: Cancer Additional Family Medical History / Comment(s): COLON CANCER Mother Family Medical History: Cancer Additional Family Medical History / Comment(s): KIDNEY CANCER General Exam General appearance: alert, in no apparent distress Respiratory exam: Present: normal lung sounds bilaterally. Absent: respiratory distress, wheezes, rales, rhonchi, stridor Cardiovascular Exam: Present: regular rate, normal rhythm, normal heart sounds. Absent: systolic murmur, diastolic murmur, rubs, gallop, clicks GI/Abdominal exam: Present: soft, tenderness (mild LLQ), normal bowel sounds. Absent: distended, guarding, rebound, rigid Neurological exam: Present: alert, oriented X3, CN II-XII intact Psychiatric exam: Present: normal affect, normal mood Skin exam: Present: warm, dry, intact, normal color. Absent: rash Course Vital Signs 12/12/22 19:23 Temperature 98.7 F Pulse Rate 84 Respiratory 18 Rate Blood Pressure 159/84 O2 Sat by Pulse 96 Oximetry Medical Decision Making - Medical Decision Making EKG taken at 20:07, interpreted by myself Sinus rhythm, nonspecific T-wave abnormality Ventricular rate 72, IN interval 161, QRS duration 96, QTc 382 Was pt. sent in by a medical professional or institution ([facility] Billy, APN, urgent care, hospital, or care home...) When possible be specific @ -[No] Did you speak to anyone other than the patient for history (EMS, parent, family, police, friend...)? What history was obtained from this source @ -[No] Did you review nursing and triage notes (agree or disagree)? Why? @ -[I reviewed and agree with nursing and triage notes] Were old charts reviewed (outside hosp., previous admission, EMS record, old EKG, old radiological studies, urgent care reports/EKG's, care home records)? Report findings @ -[No old charts were reviewed] Differential Diagnosis (chest pain, altered mental status, abdominal pain women, abdominal pain men, vaginal bleeding, weakness, fever, dyspnea, syncope, headache, dizziness, GI bleed, back pain, seizure, CVA, palpatations, mental health)? @ -Differential Abdominal Pain Women: Appendicitis, Cholecystitis, diverticulosis, ischemic bowel, pancreatitis, hepatitis, UTI, gastroenteritis, AAA, incarcerated hernia, bowel obstruction, constipation, inflammatory bowel, hepatitis, peptic ulcer disease, splenic infarction, perforated viscus, vulvitis, ovarian torsion, PID, kidney stone, placenta abruption, this is not meant to be an all-inclusive list EKG interpreted by me (3pts min.). @ -[As above] X-rays interpreted by me (1pt min.). @ -[None done] CT interpreted by me (1pt min.). @ -Diverticula with mild inflammatory changes U/S interpreted by me (1pt. min.). @ -[None done] What testing was considered but not performed or refused? (CT, X-rays, U/S, labs)? Why? @ -[None] What meds were considered but not given or refused? Why? @ -[None] Did you discuss the management of the patient with other professionals (professionals i.e. DAW[facility] Billy, APN, lab, RT, psych nurse, marriage and family social worker, kitchen food assembler, teacher, third officer, rn case management)? Give summary @ -[No] Was smoking cessation discussed for >3mins.? @ -[No] Was critical care preformed (if so, how long)? @ -[No] Were there social determinants of health that impacted care today? How? (Homelessness, low income, unemployed, alcoholism, drug addiction, transportation, low edu. Level, literacy, decrease access to med. care, retirement, rehab)? @ -[No] Was there de-escalation of care discussed even if they declined (Discuss DNR or withdrawal of care, Hospice)? DNR status @ -[No] What co-morbidities impacted this encounter? (DM, HTN, Smoking, COPD, CAD, Cancer, CVA, ARF, Chemo, Hep., AIDS, mental health diagnosis, sleep apnea, morbid obesity)? @ -[None] Was patient admitted / discharged? Hospital course, mention meds given and route, prescriptions, significant lab abnormalities, going to OR and other pertinent info. @ -Patient presented with left lower quadrant pain and diarrhea. There is mild tenderness in left lower abdomen. Patient is well-appearing. Afebrile. Labs obtained no leukocytosis. There is mild hyponatremia at 129 which was treated with IV fluids. CT interpreted by myself/radiology showing diverticula with mild inflammatory changes in the LLQ no fluid collection. Results discussed with patient. Patient will be treated for probable diverticul itis. We discussed return parameters patient in stable medical condition for discharge. Undiagnosed new problem with uncertain prognosis? @ -[No] Drug Therapy requiring intensive monitoring for toxicity (Heparin, Nitro, Insulin, Cardizem)? @ -[No] Were any procedures done? @ -[No] Diagnosis/symptom? @ -diverticulitis Acute, or Chronic, or Acute on Chronic? @ -acute Uncomplicated (without systemic symptoms) or Complicated (systemic symptoms)? @ -uncomplicated Side effects of treatment? @ -[No] Exacerbation, Progression, or Severe Exacerbation? @ -[No] Poses a threat to life or bodily function? How? (Chest pain, USA, SD, pneumonia, PE, COPD, DKA, ARF, appy, cholecystitis, CVA, Diverticulitis, Homicidal, Suicidal, threat to staff... and all critical care pts) @ - no Dr. Gar is my attending - Lab Data Result diagrams: 12/12/22 20:00 12/12/22 20:00 Lab Results 12/12/22 12/12/22 12/12/22 Range/Units 20:00 20:00 20:00 WBC 9.9 (3.8-10.6) k/uL RBC 4.83 (3.80-5.40) m/uL Hgb 14.4 (11.4-16.0) gm/dL Hct 43.5 (34.0-46.0) % MCV 90.0 (80.0-100.0) fL MCH 29.8 (25.0-35.0) pg MCHC 33.1 (31.0-37.0) g/dL RDW 12.7 (11.5-15.5) % Plt Count 289 (150-450) k/uL MPV 8.0 Neutrophils % 73 % Lymphocytes % 20 % Monocytes % 5 % Eosinophils % 1 % Basophils % 0 % Neutrophils # 7.2 (1.3-7.7) k/uL Lymphocytes # 1.9 (1.0-4.8) k/uL Monocytes # 0.5 (0-1.0) k/uL Eosinophils # 0.1 (0-0.7) k/uL Basophils # 0.0 (0-0.2) k/uL Sodium 129 L (137-145) mmol/L Potassium 3.8 (3.5-5.1) mmol/L Chloride 94 L (98-107) mmol/L Carbon Dioxide 23 (22-30) mmol/L Anion Gap 12 mmol/L BUN 18 H (7-17) mg/dL Creatinine 0.75 (0.52-1.04) mg/dL Est GFR (CKD-EPI)AfAm 83 (>60 ml/min/1.73 sqM) Est GFR (CKD-EPI)NonAf 72 (>60 ml/min/1.73 sqM) Glucose 113 H (74-99) mg/dL Plasma Lactic Acid Abel 1.4 (0.7-2.0) mmol/L Calcium 10.1 (8.4-10.2) mg/dL Magnesium 1.7 (1.6-2.3) mg/dL Total Bilirubin 0.6 (0.2-1.3) mg/dL AST 29 (14-36) U/L ALT 23 (4-34) U/L Alkaline Phosphatase 58 (38-126) U/L Total Protein 8.0 (6.3-8.2) g/dL Albumin 4.7 (3.5-5.0) g/dL Lipase 127 (23-300) U/L Urine Color Urine Appearance (Clear) Urine pH (5.0-8.0) Ur Specific [place] (1.001-1.035) Urine Protein (Negative) Urine Glucose (UA) (Negative) Urine Ketones (Negative) Urine Blood (Negative) Urine Nitrite (Negative) Urine Bilirubin (Negative) Urine Urobilinogen (<2.0) mg/dL Ur Leukocyte Esterase (Negative) Urine RBC (0-5) /hpf Urine WBC (0-5) /hpf Ur Squamous Epith Cells (0-4) /hpf Urine Mucus (None) /hpf 12/12/22 Range/Units 23:00 WBC (3.8-10.6) k/uL RBC (3.80-5.40) m/uL Hgb (11.4-16.0) gm/dL Hct (34.0-46.0) % MCV (80.0-100.0) fL MCH (25.0-35.0) pg MCHC (31.0-37.0) g/dL RDW (11.5-15.5) % Plt Count (150-450) k/uL MPV Neutrophils % % Lymphocytes % % Monocytes % % Eosinophils % % Basophils % % Neutrophils # (1.3-7.7) k/uL Lymphocytes # (1.0-4.8) k/uL Monocytes # (0-1.0) k/uL Eosinophils # (0-0.7) k/uL Basophils # (0-0.2) k/uL Sodium (137-145) mmol/L Potassium (3.5-5.1) mmol/L Chloride (98-107) mmol/L Carbon Dioxide (22-30) mmol/L Anion Gap mmol/L BUN (7-17) mg/dL Creatinine (0.52-1.04) mg/dL Est GFR (CKD-EPI)AfAm (>60 ml/min/1.73 sqM) Est GFR (CKD-EPI)NonAf (>60 ml/min/1.73 sqM) Glucose (74-99) mg/dL Plasma Lactic Acid Abel (0.7-2.0) mmol/L Calcium (8.4-10.2) mg/dL Magnesium (1.6-2.3) mg/dL Total Bilirubin (0.2-1.3) mg/dL AST (14-36) U/L ALT (4-34) U/L Alkaline Phosphatase (38-126) U/L Total Protein (6.3-8.2) g/dL Albumin (3.5-5.0) g/dL Lipase (23-300) U/L Urine Color Light Yellow Urine Appearance Clear (Clear) Urine pH 5.5 (5.0-8.0) Ur Specific [place] 1.050 H (1.001-1.035) Urine Protein Negative (Negative) Urine Glucose (UA) Negative (Negative) Urine Ketones Trace H (Negative) Urine Blood Negative (Negative) Urine Nitrite Negative (Negative) Urine Bilirubin Negative (Negative) Urine Urobilinogen <2.0 (<2.0) mg/dL Ur Leukocyte Esterase Moderate H (Negative) Urine RBC 2 (0-5) /hpf Urine WBC 13 H (0-5) /hpf Ur Squamous Epith Cells 4 (0-4) /hpf Urine Mucus Few H (None) /hpf Disposition Clinical Impression: Diverticulitis Disposition: HOME SELF-CARE Condition: Good Instructions (If sedation given, give patient instructions): Diverticulitis (ED) Additional Instructions: Take medication as directed. Please follow-up with your primary care provider in 1-2 days. Return to the emergency department if you experience new, concerning, or worsening symptoms. Prescriptions: Amoxic-Pot Clav 875-125Mg [Augmentin 875-125] 1 tab PO BID 10 Days #20 tab Acetaminophen Tab [Tylenol] 650 mg PO Q4H PRN #30 tab PRN Reason: Pain Ondansetron Odt [Zofran Odt] 4 mg PO Q8HR PRN #10 tab PRN Reason: Nausea Is patient prescribed a controlled substance at d/c from ED?: No Referrals: Garfield Dasilva MD [Primary Care Provider] - 1-2 days
[2022-12-12 19:26] VITALS: BP 159/84; PULSE 84; RESP 18; TEMP 98.7
[2022-12-12] MEDS ORDERED: ONDANSETRON 4 MG/2 ML VIAL IVP STA (20:03)
[2022-12-12] MEDS ORDERED: SODIUM CHLORIDE 0.9% 1,000 ML IV STA (20:04)
[2022-12-12] MEDS ORDERED: KETOROLAC 15 MG/ML 1 ML VIAL IVP STA (20:05)
[2022-12-12 20:29] LABS: Basophils % (A) 0 %; Eosinophils # (A) 0.1 k/uL (0-0.7); Eosinophils % (A) 1 %; HCT 43.5 % (34.0-46.0); HGB 14.4 gm/dL (11.4-16.0); Lymphocytes # (A) 1.9 k/uL (1.0-4.8); Lymphocytes % (A) 20 %; MCH 29.8 pg (25.0-35.0); MCHC 33.1 g/dL (31.0-37.0); Monocytes # (A) 0.5 k/uL (0-1.0); Monocytes % (A) 5 %; Neutrophils # (A) 7.2 k/uL (1.3-7.7); Neutrophils % (A) 73 %; Platelet Count 289 k/uL (150-450); RBC 4.83 m/uL (3.80-5.40); RDW 12.7 % (11.5-15.5); WBC 9.9 k/uL (3.8-10.6)
[2022-12-12 20:44] LABS: ALT 23 U/L (4-34); AST 29 U/L (14-36); African American GFR (CKD) 83 (>60 ml/min/1.73 sqM); Albumin 4.7 g/dL (3.5-5.0); Alkaline Phosphatase 58 U/L (38-126); Anion Gap 12 mmol/L; Blood Urea Nitrogen 18 mg/dL (7-17); Calcium 10.1 mg/dL (8.4-10.2); Carbon Dioxide 23 mmol/L (22-30); Chloride 94 mmol/L (98-107); Glucose 113 mg/dL (74-99); Lipase 127 U/L (23-300); Magnesium 1.7 mg/dL (1.6-2.3); Non-African American GFR(CKD) 72 (>60 ml/min/1.73 sqM); Potassium 3.8 mmol/L (3.5-5.1); Sodium 129 mmol/L (137-145); Total Bilirubin 0.6 mg/dL (0.2-1.3)
--- NOTE | 2022-12-12 21:52 | CT ---
EXAMINATION TYPE: CT abdomen pelvis w con CT DLP: 909.5 mGycm, Automated exposure control for dose reduction was used. DATE OF EXAM: 12/12/2022 9:09 PM COMPARISON: None. CLINICAL INDICATION:Female, 87 years old with history of LLQ pain; TECHNIQUE: Axial CT of the abdomen and pelvis. Sagittal and coronal reformats were created on a [employer] workstation. Contrast used:100 ml mL of Isovue 300 with IV Contrast, Oral contrast used: without Oral Contrast FINDINGS: LOWER CHEST: Unremarkable ABDOMEN LIVER: Unremarkable GALLBLADDER AND BILE DUCTS: Unremarkable. PANCREAS: Unremarkable. SPLEEN: Unremarkable. ADRENAL GLANDS: Unremarkable. KIDNEYS AND URETERS: Bilateral renal cysts. Left nonobstructing 2 mm calculus. No obstructive uropath y. No right renal calculus visualized. PELVIS BLADDER: Unremarkable REPRODUCTIVE: Surgical clips are seen throughout the bilateral ABDOMEN & PELVIS STOMACH AND BOWEL: No evidence of bowel obstruction. Scattered colonic diverticula are present. The a ppendix is normal. There may be mild inflammation changes in the left lower quadrant along the colon no evidence for organizing fluid collection. PERITONEUM/RETROPERITONEUM: No evidence of pneumoperitoneum or free fluid. VASCULATURE: Mild atherosclerotic calcifications are present throughout the abdominal aorta and its b ranches. No evidence of aortic aneurysm. MUSCULOSKELETAL: No acute osseous abnormalities. Moderate disc degeneration changes are present throu ghout the thoracolumbar spine. LYMPH NODES: No gross evidence for lymphadenopathy. SOFT TISSUE/ABDOMINAL WALL: Unremarkable IMPRESSION: 1. Multiple colonic diverticula are present. There may be mild inflammation changes in the along the colon and the left lower quadrant. No other acute left lower quadrant process visualized. No left ob structive uropathy. 2. Nonobstructing left 2 mm calculus. 3. Bilateral renal cysts which appear simple.
[2022-12-12] MEDS ORDERED: AMOXIC-POT CLAV 875-125MG 1 EACH TAB PO STA (22:21)
[2022-12-12 23:31] LABS: Appearance,Urine Clear (Clear); Bilirubin,Urine Negative (Negative); Blood,Urine Negative (Negative); Color,Urine Light Yellow; Glucose,Urine (UA) Negative (Negative); Ketones,Urine Trace (Negative); Leukocyte Esterase,Urine Moderate (Negative); Mucus,Urine Few /hpf; Nitrite,Urine Negative (Negative); PH, Urine 5.5 (5.0-8.0); Protein,Urine Negative (Negative); RBC,Urine 2 /hpf (0-5); Squamous Epithelial Cell,Urine 4 /hpf (0-4); Urobilinogen,Urine <2.0 mg/dL (<2.0); WBC,Urine 13 /hpf (0-5)
== END 2022-12-12 23:12 | disposition home or self-care (01) ==
LOC: EC 18:13
DX: K57.32 Diverticulitis of large intestine without perforation or abscess without bleeding (principal); E87.1 Hypo-osmolality and hyponatremia; I10 Essential (primary) hypertension; E78.5 Hyperlipidemia, unspecified; Z79.82 Long term (current) use of aspirin; Z79.899 Other long term (current) drug therapy; Z88.5 Allergy status to narcotic agent
CPT/HCPCS: 99284; 96374; 96375; 96361 ×3; 36415; 93005; 80053; 83605; 83690; 83735; 85025; 81001; 74177; J2405; J1885; Q9967